=== PATIENT | female | born 1955 | race Caucasian/White ===

== ENCOUNTER → 2022-08-05 14:55 | Outpatient (BNVA) | payer MEDICARE, SELFPAY | PROVIDERS: PCP Family Medicine; Visit Provider Anesthesiology | DX: M51.36 Other intervertebral disc degeneration, lumbar region (principal); M47.816 Spondylosis without myelopathy or radiculopathy, lumbar region; G89.4 Chronic pain syndrome | CPT/HCPCS: 99202 ==

== ENCOUNTER 2022-09-03 06:08 | Outpatient (REF) | payer MEDICARE, SELFPAY ==
--- NOTE | ~2022-09-03 | FL_ITS ---
EXAMINATION: XR FLUOROSCOPY WITH IMAGES CLINICAL INFORMATION: M47.816 - Spondylosis without myelopathy or radiculopathy, lumbar region COMPARISON: None available. TECHNIQUE: Fluoroscopy Supervised By: Dr. Alirio Mccoy. Fluoroscopy Time: 0.6 minutes. Cumulative Dose: 9.0 mGy. DAP: 2.45 Gycm2. Images: 6. FINDINGS: There are spinal needles overlying the bilateral outer L3, L4, and L5 neural foramen. There is contrast seen in the respective nerve sheaths. Some early transforaminal epidural extension is suggested. No visible vascular communication. There are multilevel degenerative disc changes with lumbar disc narrowing and vertebral spurring. FL/FL guidance in treatment room IMPRESSION: Fluoroscopy for pain management procedures.
== END 2022-09-03 06:09 | disposition home or self-care (01) ==
LOC: CF 06:08
PROVIDERS: Visit Provider Anesthesiology
DX: M47.816 Spondylosis without myelopathy or radiculopathy, lumbar region (principal); G89.4 Chronic pain syndrome
CPT/HCPCS: 64493; 64494

== ENCOUNTER → 2022-09-09 11:41 | Outpatient (BNVA) | payer MEDICARE, SELFPAY | PROVIDERS: PCP Family Medicine; Visit Provider Anesthesiology | DX: M47.816 Spondylosis without myelopathy or radiculopathy, lumbar region (principal); M51.36 Other intervertebral disc degeneration, lumbar region; G89.4 Chronic pain syndrome | CPT/HCPCS: Q3014 ==

== ENCOUNTER 2022-09-17 13:47 | Outpatient (REF) | payer MEDICARE, SELFPAY ==
--- NOTE | ~2022-09-17 | XR_ITS ---
EXAMINATION: XR SACRUM AND COCCYX CLINICAL INFORMATION: Sacrococcygeal disorder. Pain. COMPARISON: None available. TECHNIQUE: 2 views of the sacrum and 2 views of the coccyx were obtained. FINDINGS: There is normal symmetry of bilateral SI joints without sclerosis. Visualized sacrum is intact. No fracture or lytic process. Bilateral hip joints are symmetric and normal. Lower lumbar disc levels are preserved normal. There is moderate spondylosis in the lower lumbar spine. Several phleboliths are seen in the left lower pelvis. XR/XR sacrum coccyx min 2V IMPRESSION: 1. Unremarkable sacrum and coccyx exam. 2. Moderate spondylosis in the lower lumbar spine. No visible acute fracture or dislocation seen. 3. Unremarkable SI joints. 4. Mild degenerative spondylosis lower lumbar spine.
== END 2022-09-17 13:48 | disposition home or self-care (01) ==
LOC: HO.XRAY 13:47
PROVIDERS: PCP Nurse Practitioner Adult Health; Visit Provider Anesthesiology
DX: M53.3 Sacrococcygeal disorders, not elsewhere classified (principal)
CPT/HCPCS: 72220

== ENCOUNTER 2022-10-15 05:50 | Outpatient (REF) | payer MEDICARE, SELFPAY ==
--- NOTE | ~2022-10-15 | FL_ITS ---
EXAMINATION: XR FLUOROSCOPY WITH IMAGES CLINICAL INFORMATION: Other intervertebral disc degeneration, lumbar region. COMPARISON: None available. TECHNIQUE: Fluoroscopy Supervised By: Dr. Mccoy. Fluoroscopy Time: 0.6 min. Cumulative Dose: 7.26 mGy. DAP: 0.126 Gycm2. Images: 2. FINDINGS: 2 images demonstrate needle placement and injection of the L5-S1 disc space. FL/FL guidance in treatment room IMPRESSION: Prostatic guidance for L5-S1 disc injection.
== END 2022-10-15 05:51 | disposition home or self-care (01) ==
LOC: CF 05:50
PROVIDERS: Visit Provider Anesthesiology
DX: M51.36 Other intervertebral disc degeneration, lumbar region (principal); M47.816 Spondylosis without myelopathy or radiculopathy, lumbar region; G89.4 Chronic pain syndrome
CPT/HCPCS: 62290; 99212; J0690; J3301; Q9965

== ENCOUNTER → 2022-10-21 15:17 | Outpatient (BNVA) | payer MEDICARE, SELFPAY | PROVIDERS: PCP Nurse Practitioner Adult Health; Visit Provider Anesthesiology | DX: M51.36 Other intervertebral disc degeneration, lumbar region (principal); M47.816 Spondylosis without myelopathy or radiculopathy, lumbar region; G89.4 Chronic pain syndrome | CPT/HCPCS: Q3014 ==

== ENCOUNTER 2022-11-05 07:08 | Outpatient (REF) | payer MEDICARE, SELFPAY ==
--- NOTE | ~2022-11-05 | FL_ITS ---
EXAMINATION: XR FLUOROSCOPY WITH IMAGES CLINICAL INFORMATION: Sacrococcygeal disorder, not elsewhere classified. COMPARISON: None available. TECHNIQUE: Fluoroscopy Supervised By: . Fluoroscopy Time: 0.1 minute. Cumulative Dose: 3.48 mGy. DAP: 0.948 Gycm2. Images: 1. FINDINGS: Single image demonstrates needle placement and contrast injection over the right sacroiliac joint FL/FL guidance in treatment room IMPRESSION: Fluoroscopy guidance for right sacroiliac joint injection
== END 2022-11-05 07:09 | disposition home or self-care (01) ==
LOC: CF 07:08
PROVIDERS: PCP Nurse Practitioner Adult Health; Visit Provider Anesthesiology
DX: M53.3 Sacrococcygeal disorders, not elsewhere classified (principal); M51.36 Other intervertebral disc degeneration, lumbar region; M47.816 Spondylosis without myelopathy or radiculopathy, lumbar region; M46.1 Sacroiliitis, not elsewhere classified
CPT/HCPCS: 27096; J2795

== ENCOUNTER → 2022-11-07 09:39 | Outpatient (BNVA) | payer MEDICARE, SELFPAY | PROVIDERS: PCP Nurse Practitioner Adult Health; Visit Provider Anesthesiology | DX: M51.36 Other intervertebral disc degeneration, lumbar region (principal); M47.816 Spondylosis without myelopathy or radiculopathy, lumbar region; M46.1 Sacroiliitis, not elsewhere classified; M53.3 Sacrococcygeal disorders, not elsewhere classified; G89.4 Chronic pain syndrome | CPT/HCPCS: 99212 ==

== ENCOUNTER 2022-12-24 05:59 | Outpatient (REF) | payer MEDICARE, SELFPAY ==
--- NOTE | ~2022-12-24 | FL_ITS ---
EXAMINATION: XR FLUOROSCOPY WITH IMAGES CLINICAL INFORMATION: Sacrococcygeal disorders, not elsewhere classified. Ganglion injection. COMPARISON: Fluoroscopy 11/05/2022. TECHNIQUE: Fluoroscopy Supervised By: Dr. Alirio Mccoy. Fluoroscopy Time: 0.2 minutes. Cumulative Dose: 5.77 mGy. DAP: 0.100 mGy-m2. Images: 2. FINDINGS: Images demonstrate needle placement and contrast injection adjacent to the lower sacrum or coccyx. FL/FL guidance in treatment room IMPRESSION: Fluoroscopy guidance for pain management procedure
--- NOTE | ~2022-12-24 | MR_ITS ---
NEURORADIOLOGY SECOND OPINION OUTSIDE FILM REVIEW: I was specifically asked to comment on the presence or absence of Modic changes on this outside MRI performed at [facility] on October 20, 2019. There are Modic type I and Modic type II endplate signal changes at L4-L5 and there are Modic type I endplate signal changes at L2-L3 on the left side anteriorly. I was not asked to review the remainder of this exam.
== END 2022-12-24 06:00 | disposition home or self-care (01) ==
LOC: CF 05:59
PROVIDERS: Visit Provider Anesthesiology
DX: M53.3 Sacrococcygeal disorders, not elsewhere classified (principal); M51.36 Other intervertebral disc degeneration, lumbar region; M47.816 Spondylosis without myelopathy or radiculopathy, lumbar region; M46.1 Sacroiliitis, not elsewhere classified; G89.4 Chronic pain syndrome
CPT/HCPCS: 64999; J3301

== ENCOUNTER 2022-12-24 09:28 | Outpatient (AMB) | payer MEDICARE, SELFPAY ==
[2022-12-24 09:33] VITALS: BP 130/66; PULSE 77; RESP 16; O2SAT 96; BMI 23.7
--- NOTE | 2022-12-24 09:33 | A.OFFVIS_ITS ---
Intake Vital Signs 12/24/22 09:33 12/24/22 10:30 Height 5 ft 4 in 5 ft 4 in Weight 138 lb 138 lb BMI 23.7 23.7 BP 130/66 134/78 Blood Pressure Location Lt brachial Lt brachial Position Sitting Sitting Respiration 16 16 Pulse 77 65 Pulse Source Pulse Oximeter Pulse Oximeter Pulse Oximetry (%) 96 98 Oxygen Delivery Method Room Air Room Air Comment Pre-op post-op Intake Visit Reasons: GANGLION IMPAR THERAPEUTIC INJ/STABLE Allergies Peppers, Jalapeno Adverse Reaction (Severe, Verified 12/24/22 09:33) Shortness of Breath [facility] Medical History (Updated 11/05/22 @ 15:20 by Alirio Mccoy MD) Arthritis, lumbar spine Epilepsy Heart murmur Surgical History (Updated 08/05/22 @ 15:18 by Zakia Manzano) H/O right mastectomy Physical Exam Vital Signs: Last Vital Signs Pulse 65 12/24/22 10:30 Resp 16 12/24/22 10:30 BP 134/78 12/24/22 10:30 Pulse Ox 98 12/24/22 10:30 Oxygen Delivery Method Room Air 12/24/22 10:30 BMI result Body Mass Index 23.7 Assessment & Plan Assessment & Plan (1) Disc degeneration, lumbar: Code(s): M51.36 - Other intervertebral disc degeneration, lumbar region (2) Facet degeneration of lumbar region: Code(s): M47.816 - Spondylosis without myelopathy or radiculopathy, lumbar region (3) Spondylosis of lumbar region without myelopathy or radiculopathy: Code(s): M47.816 - Spondylosis without myelopathy or radiculopathy, lumbar region (4) Chronic pain syndrome: Code(s): G89.4 - Chronic pain syndrome Plan: (5) Sacroiliitis, not elsewhere classified: Code(s): M46.1 - Sacroiliitis, not elsewhere classified (6) Coccydynia: Code(s): M53.3 - Sacrococcygeal disorders, not elsewhere classified Plan: ganglion impar injection. Informed consent was explained to the patient. All questions were explained and answered. The patient was taken inside the operating room. The patient was positioned prone on operating table . Time-out was performed delineating correct site, side, the nature of the procedure, patient's allergy, preoperative antibiotic if needed. All operating room staff was participating in OR time-out procedure. C-arm was brought over the operating field and picture of the patient's lower pelvis was demonstrated on the screen. coccygeal spine was delineated on the screen. intervertebral disc between coccyceal vertebrae 2 and 3 was chosen as the site of the needle insertion. The skin in the progection of the target was injected with local anesthetic lidocaine 2% 2 mls and after that 22 g 3&1/2 inch needle was inserted through the skin wheal and advanced to the disc on AP view in the strict midline fashion. After that the C-arm was switched to the lateral position and the needle was continued to slowly advance through the intervertebral disc on the lateral view 1-2 mm at a time. When the tip of the needle on the lateral view cleard 2 mm from the anterior surface of the coccygeal spine silhouette the injection of the contrast was performed demonstrating retropelvic spread of the contrast and no intravesicular, no intra rectal and no intravascular spread of the contrast. After that treatment medicine solusion was injected containing ropivacaine 0.5% 5 mls and kenalog 40 mg. After that the needle was removed and sterile dressing was applied.The patient tolerated procedure well. (7) Sacroiliac dysfunction: Code(s): M53.3 - Sacrococcygeal disorders, not elsewhere classified Plan diagnostic L5-S1 intradiscal injection was performed as above. On x-ray view there is a big up to 6 mm gap in between the both sides of the sacroiliac joint. The intradiscal injection resulted in equivocal pain relief from 3/10 to 2/10 during the 1st couple of hours after the procedure. The patient reported today that SI joint injection which was performed on 11/05/2022 resulted in no pain improvement either. She today explain to me that her pain could be coccydynia with most of the pain affecting her while she is sitting sq on her buttocks. I offered her to consider impar injection. The risks and benefits of ganglion impar injections were carefully explained to the patient. It required prolonged and very detailed conversation. All questions were answered. Patient agreed to go for the procedure. I will schedule her for the procedure and after that I will schedule her for the follow-up appointment. Orders: Orders FL guidance in treatment room Today G89.4 - Chronic pain syndrome, M53.3 - Sacrococcygeal disorders, not elsewhere classified Coding Level of Care Code Procedure Only Diagnoses Disc degeneration, lumbar M51.36 Facet degeneration of lumbar region M47.816 Spondylosis of lumbar region without myelopathy or radiculopathy M47.816 Chronic pain syndrome G89.4 Sacroiliitis, not elsewhere classified M46.1 Coccydynia M53.3 Sacroiliac dysfunction M53.3
[2022-12-24 10:30] VITALS: BP 134/78; PULSE 65; RESP 16; O2SAT 98; BMI 23.7
== END 2022-12-24 10:28 | disposition home or self-care (01) ==
PROVIDERS: PCP Nurse Practitioner Adult Health; Visit Provider Anesthesiology
DX: M51.36 Other intervertebral disc degeneration, lumbar region (principal); M47.816 Spondylosis without myelopathy or radiculopathy, lumbar region; G89.4 Chronic pain syndrome; M46.1 Sacroiliitis, not elsewhere classified; M53.3 Sacrococcygeal disorders, not elsewhere classified
CPT/HCPCS: 64999

== ENCOUNTER 2023-01-27 09:18 | Outpatient (AMB) | payer MEDICARE, SELFPAY ==
--- NOTE | 2023-01-27 09:31 | MHC.OFFVIS ---
Intake Vital Signs 01/27/23 09:35 Height 5 ft 4 in Weight 139 lb BMI 23.9 BP 142/88 H Blood Pressure Location Lt brachial Position Sitting Respiration 16 Pulse 85 Pulse Source Pulse Oximeter Pulse Oximetry (%) 96 Oxygen Delivery Method Room Air Intake Visit Reasons: GANGLION IMPAR THERAPEUTIC INJ 12/24/22 Allergies Peppers, Jalapeno Adverse Reaction (Severe, Verified 01/27/23 09:36) Shortness of Breath HPI HPI Comments History of Present Illness Details Marti is very pleasant 66 years old female who is suffering from her low back pain. Previously multiple attempts were made to diagnose and alleviate her pain. We performed intradiscal injection L5-S1 on her with the minimal pain reduction, we performed sacroiliac joint injection bilateral on which she reported no pain improvement. Last time she asked me whether her condition could be coccydynia. I performed ganglion impar injection?which resulted in no pain improvement. Vertebra genic pain could be considered with this patient since she reports pain exacerbation with flexing forward and prolong sitting. I requested her to bring me the MRI she received about 2 years ago and maybe earlier in [facility]. I will upload this MRI in our system and I will request radiologist to read the MRI. If there are Modic type changes in her lower lumbar spine L4-5 S1 I will consider her a candidate for intraseptal procedure. [facility] Medical History (Updated 01/27/23 @ 13:31 by Alirio Mccoy MD) Arthritis, lumbar spine Heart murmur Epilepsy Surgical History (Updated 08/05/22 @ 15:18 by Zakia Manzano) H/O right mastectomy Review of Systems Const All systems reviewed & are unremarkable except as noted in HPI and below ENT Reports Normal hearing present Neuro Reports Normal hearing present, Denies Abnormal speech present and Denies Sensory deficit (Neuro) Physical Exam Vital Signs: Last Vital Signs Pulse 85 01/27/23 09:35 Resp 16 01/27/23 09:35 BP 142/88 H 01/27/23 09:35 Pulse Ox 96 01/27/23 09:35 Oxygen Delivery Method Room Air 01/27/23 09:35 BMI result Body Mass Index 23.9 Const General: no acute distress Nutritional Appearance: average body habitus and well nourished Orientation/consciousness: patient oriented x3 Eyes General: appearance normal, both eyes and all related structures Pupils: Equal, round and reactive pupils present EOM: EOMs intact bilaterally Neck Neck: Yes full ROM Chest Chest palpation & inspection: normal inspection of the chest Resp Effort & Inspection: normal respiratory effort, able to speak in complete sentences, normal respiratory pattern, no audible wheezes and no cough Cardio Jugular venous distension: no JVD GI Inspection: Yes normal to inspection Back/Spine/Pelvis Other: She is able to stand on bilateral tiptoes and bilateral heels without difficulty. She is able to lift up large toes on bilateral feet without elevation of the rest of the toes. She is able to flex herself forward without difficulty but she is unable to flex herself backwards because of pain. Loading test is positive on the left. Tenderness of palpation in the center of the sacral bone. No tenderness of palpation in the projection of lumbar spine in paraspinal or spinal regions. Flexing spine sideways is painful more on the left and less on the right. Praful test is negative bilaterally. Gaenslen test is negative bilaterally. Izabel finger test is negative bilaterally. Tenderness on palpation in the projection of the coccygeal spine. Neuro General: patient oriented x3 and gait normal Cranial nerves: Yes CN's II-XII intact bilaterally, Yes Equal, round and reactive pupils present, Yes Normal hearing present and Yes Ability to bilaterally elevate shoulders present Speech: No Abnormal speech present Gait exam (Neuro): Normal gait present Motor exam (neuro): 5/5 motor strength present throughout Sensory Exam: No Sensory deficit (Neuro) Extrem General: No pedal edema Psych Speech and movement: Normal speech and movement present Affect: normal affect Attitude: cooperative Thought process: Normal thought process present Thought content: Normal thought content present Insight: Good insight present (Psych) Judgement: Good judgement present (Psych) Assessment & Plan Assessment & Plan (1) Disc degeneration, lumbar: Code(s): M51.36 - Other intervertebral disc degeneration, lumbar region (2) Facet degeneration of lumbar region: Code(s): M47.816 - Spondylosis without myelopathy or radiculopathy, lumbar region (3) Spondylosis of lumbar region without myelopathy or radiculopathy: Code(s): M47.816 - Spondylosis without myelopathy or radiculopathy, lumbar region (4) Chronic pain syndrome: Code(s): G89.4 - Chronic pain syndrome Plan: (5) Sacroiliitis, not elsewhere classified: Code(s): M46.1 - Sacroiliitis, not elsewhere classified (6) Coccydynia: Code(s): M53.3 - Sacrococcygeal disorders, not elsewhere classified (7) Sacroiliac dysfunction: Code(s): M53.3 - Sacrococcygeal disorders, not elsewhere classified (8) Vertebrogenic low back pain: Code(s): M54.51 - Vertebrogenic low back pain Plan Multiple attempts to alleviate the pain of the patient's were done without significant success. Intradiscal injection resulted in no pain improvement of though she might have aggravation in her pain related to intradiscal injection and it may be indicative for discogenic pain. Sacroiliac joint injections resulted in no pain improvement and ganglion impar injection resulted in no pain improvement. I requested her to bring me MRI of the lumbar spine she had at [facility] we will upload this MRI and will read the MRI for Modic type changes in the lower lumbar spine. Coding Level of Care Code Est Pt Level 4 (92253) Diagnoses Disc degeneration, lumbar M51.36 Facet degeneration of lumbar region M47.816 Spondylosis of lumbar region without myelopathy or radiculopathy M47.816 Chronic pain syndrome G89.4 Sacroiliitis, not elsewhere classified M46.1 Coccydynia M53.3 Sacroiliac dysfunction M53.3 Vertebrogenic low back pain M54.51
[2023-01-27 09:35] VITALS: BP 142/88; PULSE 85; RESP 16; O2SAT 96; BMI 23.9
== END 2023-01-27 10:15 | disposition home or self-care (01) ==
PROVIDERS: PCP Nurse Practitioner Adult Health; Visit Provider Anesthesiology
DX: M54.51 Vertebrogenic low back pain (principal); M51.36 Other intervertebral disc degeneration, lumbar region; M47.816 Spondylosis without myelopathy or radiculopathy, lumbar region; G89.4 Chronic pain syndrome; M46.1 Sacroiliitis, not elsewhere classified; M53.3 Sacrococcygeal disorders, not elsewhere classified
CPT/HCPCS: 99214

== ENCOUNTER → 2023-01-27 09:18 | Outpatient (BNVA) | payer MEDICARE, SELFPAY | PROVIDERS: PCP Nurse Practitioner Adult Health; Visit Provider Anesthesiology | DX: M51.36 Other intervertebral disc degeneration, lumbar region (principal); M47.816 Spondylosis without myelopathy or radiculopathy, lumbar region; M46.1 Sacroiliitis, not elsewhere classified; M53.3 Sacrococcygeal disorders, not elsewhere classified; M54.51 Vertebrogenic low back pain; G89.4 Chronic pain syndrome | CPT/HCPCS: 99212 ==

== ENCOUNTER 2023-02-03 15:54 | Outpatient (AMB) | payer MEDICARE, SELFPAY ==
--- NOTE | 2023-02-03 15:54 | MHC.OFFVIS ---
Intake Intake Visit Reasons: Intracept Procedure Discussion Allergies NighatVioleta jacob Adverse Reaction (Severe, Verified 02/03/23 15:54) Shortness of Breath HPI HPI Comments History of Present Illness Details Marti is very pleasant 66 years old female who is suffering from her low back pain. Previously multiple attempts were made to diagnose and alleviate her pain. We performed intradiscal injection L5-S1 on her with the minimal pain reduction, we performed sacroiliac joint injection bilateral on which she reported no pain improvement. Last time she asked me whether her condition could be coccydynia. I performed ganglion impar injection?which resulted in no pain improvement. Vertebrogenic pain could be considered with this patient since she reports pain exacerbation with flexing forward and prolong sitting. On the MRI of this patient NEURORADIOLOGY SECOND OPINION OUTSIDE FILM REVIEW: I was specifically asked to comment on the presence or absence of Modic changes on this outside MRI performed at [facility] on October 20, 2019. There are Modic type I and Modic type II endplate signal changes at L4-L5 and there are Modic type I endplate signal changes at L2-L3 on the left side anteriorly. I was not asked to review the remainder of this exam. The patient and I had very long and detailed conversation about the options of the treatment. I offered her intracept procedure. Explained to the patient that this is the last attempt to find her pain generator before was start to discuss neuromodulation for her. She agreed to try. I will schedule her for procedure accordingly. [facility] Medical History (Updated 01/27/23 @ 13:31 by Alirio Mccoy MD) Arthritis, lumbar spine Heart murmur Epilepsy Surgical History (Updated 08/05/22 @ 15:18 by Zakia Manzano) H/O right mastectomy Review of Systems Const All systems reviewed & are unremarkable except as noted in HPI and below Assessment & Plan Assessment & Plan (1) Disc degeneration, lumbar: Code(s): M51.36 - Other intervertebral disc degeneration, lumbar region (2) Facet degeneration of lumbar region: Code(s): M47.816 - Spondylosis without myelopathy or radiculopathy, lumbar region (3) Spondylosis of lumbar region without myelopathy or radiculopathy: Code(s): M47.816 - Spondylosis without myelopathy or radiculopathy, lumbar region (4) Chronic pain syndrome: Code(s): G89.4 - Chronic pain syndrome Plan: (5) Sacroiliitis, not elsewhere classified: Code(s): M46.1 - Sacroiliitis, not elsewhere classified (6) Coccydynia: Code(s): M53.3 - Sacrococcygeal disorders, not elsewhere classified (7) Sacroiliac dysfunction: Code(s): M53.3 - Sacrococcygeal disorders, not elsewhere classified (8) Vertebrogenic low back pain: Code(s): M54.51 - Vertebrogenic low back pain Plan Multiple attempts to alleviate the pain of the patient's were done without significant success. Intradiscal injection resulted in no pain improvement of though she might have aggravation in her pain related to intradiscal injection and it may be indicative for discogenic pain. Sacroiliac joint injections resulted in no pain improvement and ganglion impar injection resulted in no pain improvement. MRI 2nd opinion as above demonstrated Modic type 2 and Modic type 1 changes at the levels of the L2-L3 and L4-5. This patient will be scheduled as we agreed upon today for intracept procedure by arcelia. Patient Instructions: I here by testify that I spent 30 minutes in conversation with this patient as well as in planning her care and organizing her note. Telehealth Telehealth Location of provider rendering services: practice address Location of patient: address on file Patient Identification confirmed using: Name, : Yes Telehealth method: voice only Patient verbally consented to treatment: Yes Patient verbally consented to billing insurance company: Yes Patient informed of any privacy concerns related to visit: Yes Coding Level of Care Code Tele Est Pt Level 4 (89622) Diagnoses Disc degeneration, lumbar M51.36 Facet degeneration of lumbar region M47.816 Spondylosis of lumbar region without myelopathy or radiculopathy M47.816 Chronic pain syndrome G89.4 Sacroiliitis, not elsewhere classified M46.1 Coccydynia M53.3 Sacroiliac dysfunction M53.3 Vertebrogenic low back pain M54.51
== END 2023-02-03 16:10 | disposition home or self-care (01) ==
LOC: HO.PMC 15:54
PROVIDERS: PCP Nurse Practitioner Adult Health; Visit Provider Anesthesiology
DX: M51.36 Other intervertebral disc degeneration, lumbar region (principal); M47.816 Spondylosis without myelopathy or radiculopathy, lumbar region; G89.4 Chronic pain syndrome; M46.1 Sacroiliitis, not elsewhere classified; M53.3 Sacrococcygeal disorders, not elsewhere classified; M54.51 Vertebrogenic low back pain
CPT/HCPCS: 99443

== ENCOUNTER → 2023-02-03 15:54 | Outpatient (BNVA) | payer MEDICARE, SELFPAY | PROVIDERS: PCP Nurse Practitioner Adult Health; Visit Provider Anesthesiology ==

== ENCOUNTER 2023-02-20 08:46 | Outpatient (AMB) | payer MEDICARE, SELFPAY ==
--- NOTE | 2023-02-20 08:53 | A.OFFVIS_ITS ---
Intake Vital Signs 02/20/23 08:55 Height 5 ft 4 in Weight 141 lb BMI 24.2 BP 136/70 Blood Pressure Location Rt brachial Position Sitting Respiration 16 Pulse 93 Pulse Source Pulse Oximeter Pulse Oximetry (%) 96 Oxygen Delivery Method Room Air Intake Visit Reasons: 3 WEEK FOLLOW UP/ CONFIRMED Allergies Nighatnidia Ramonashalonda Adverse Reaction (Severe, Verified 02/20/23 08:56) Shortness of Breath HPI HPI Comments History of Present Illness Details Marti is in my office with questions related to her procedure scheduled on 03/07/2023. This would be intrasept procedure for her vertebra genic pain. She had numerous and multiple questions about the procedure. She had Modic type 1 and 2 changes at L4-5 and she has some changes Modic type 1 at L2-L3. Those levels would be a bad addressed by the procedure. Careful explanations were given. Prior:. Previously multiple attempts were made to diagnose and alleviate her pain. We performed intradiscal injection L5-S1 on her with the minimal pain reduction, we performed sacroiliac joint injection bilateral on which she reported no pain improvement. Last time she asked me whether her condition could be coccydynia. I performed ganglion impar injection?which resulted in no pain improvement. Vertebrogenic pain could be considered with this patient since she reports pain exacerbation with flexing forward and prolong sitting. On the MRI of this patient NEURORADIOLOGY SECOND OPINION OUTSIDE FILM REVIEW: I was specifically asked to comment on the presence or absence of Modic changes on this outside MRI performed at [facility] on October 20, 2019. There are Modic type I and Modic type II endplate signal changes at L4-L5 and there are Modic type I endplate signal changes at L2-L3 on the left side anteriorly. I was not asked to review the remainder of this exam. The patient and I had very long and detailed conversation about the options of the treatment. I offered her intracept procedure. Explained to the patient that this is the last attempt to find her pain generator before was start to discuss neuromodulation for her. She agreed to try. I will schedule her for procedure accordingly. [facility], [facility] Medical History (Updated 01/27/23 @ 13:31 by Alirio Mccoy MD) Arthritis, lumbar spine Heart murmur Epilepsy Surgical History (Updated 08/05/22 @ 15:18 by Zakia Manzano) H/O right mastectomy Review of Systems Const All systems reviewed & are unremarkable except as noted in HPI and below ENT Reports Normal hearing present Neuro Reports Normal hearing present, Denies Abnormal speech present and Denies Sensory deficit (Neuro) Physical Exam Vital Signs: Last Vital Signs Pulse 93 02/20/23 08:55 Resp 16 02/20/23 08:55 BP 136/70 02/20/23 08:55 Pulse Ox 96 02/20/23 08:55 Oxygen Delivery Method Room Air 02/20/23 08:55 BMI result Body Mass Index 24.2 Const General: no acute distress Nutritional Appearance: average body habitus and well nourished Orientation/consciousness: patient oriented x3 Eyes General: appearance normal, both eyes and all related structures Pupils: Equal, round and reactive pupils present EOM: EOMs intact bilaterally Neck Neck: Yes full ROM Chest Chest palpation & inspection: normal inspection of the chest Resp Effort & Inspection: normal respiratory effort, able to speak in complete sentences, normal respiratory pattern, no audible wheezes and no cough Cardio Jugular venous distension: no JVD GI Inspection: Yes normal to inspection Back/Spine/Pelvis Other: She is able to stand on bilateral tiptoes and bilateral heels without difficulty. She is able to lift up large toes on bilateral feet without elevation of the rest of the toes. She is able to flex herself forward without difficulty but she is unable to flex herself backwards because of pain. Loading test is positive on the left. Tenderness of palpation in the center of the sacral bone. No tenderness of palpation in the projection of lumbar spine in paraspinal or spinal regions. Flexing spine sideways is painful more on the left and less on the right. Praful test is negative bilaterally. Gaenslen test is negative bilaterally. Izabel finger test is negative bilaterally. Tenderness on palpation in the projection of the coccygeal spine. Neuro General: patient oriented x3 and gait normal Cranial nerves: Yes CN's II-XII intact bilaterally, Yes Equal, round and reactive pupils present, Yes Normal hearing present and Yes Ability to bilaterally elevate shoulders present Speech: No Abnormal speech present Gait exam (Neuro): Normal gait present Motor exam (neuro): 5/5 motor strength present throughout Sensory Exam: No Sensory deficit (Neuro) Extrem General: No pedal edema Psych Speech and movement: Normal speech and movement present Affect: normal affect Attitude: cooperative Thought process: Normal thought process present Thought content: Normal thought content present Insight: Good insight present (Psych) Judgement: Good judgement present (Psych) Results Reviewed Results Reviewed: MRI of the lumbar spine 10/20/2019. Low back pain degenerative disc disease history of breast cancer findings: On sagittal sequences from T11-T12 through L1-L2 no findings of concern is identified. Conus appropriately located at L1. L2-L3 low normal disc height. No disc abnormality. No central canal or foraminal stenosis. L3-L4 degenerative disc disease with disc height loss. Slight protrusion configuration right laterally but not significant mass effect. There is on minimal minimally progression compared to 2017. L4-5: Chronic degenerative disc disease with disc ridge complex and some disc bulging out to were the right-sided foramen. No progressive mass effect on exiting L4 nerve root. No progressive spinal stenosis. Mild facet degenerative changes may be minimally progressed. No joint infusion at the facet joints. Some minor active endplate marrow signal changes to were the right-sided endplates. L5-S1: Minor facet degenerative change. Some trace disc bulging to were the right. No mass effect or canal stenosis. No worrisome marrow signal changes. Study not tailored for evaluation of regional soft tissue but no adenopathy or other soft tissue findings of clear concern is identified. Impression: Largely chronic spondylitic changes with degenerative disc disease most pronounced at L4-5 with disc ridge complex but no spinal stenosis or progressive foraminal narrowing. Slight protrusion configuration at the right lateral aspect of L3 slightly progressive compared to 2017 but without significant harjit onal mass effect. Assessment & Plan Assessment & Plan (1) Disc degeneration, lumbar: Code(s): M51.36 - Other intervertebral disc degeneration, lumbar region (2) Facet degeneration of lumbar region: Code(s): M47.816 - Spondylosis without myelopathy or radiculopathy, lumbar region (3) Spondylosis of lumbar region without myelopathy or radiculopathy: Code(s): M47.816 - Spondylosis without myelopathy or radiculopathy, lumbar region (4) Chronic pain syndrome: Code(s): G89.4 - Chronic pain syndrome Plan: (5) Sacroiliitis, not elsewhere classified: Code(s): M46.1 - Sacroiliitis, not elsewhere classified (6) Coccydynia: Code(s): M53.3 - Sacrococcygeal disorders, not elsewhere classified (7) Sacroiliac dysfunction: Code(s): M53.3 - Sacrococcygeal disorders, not elsewhere classified (8) Vertebrogenic low back pain: Code(s): M54.51 - Vertebrogenic low back pain Plan Multiple attempts to alleviate the pain of the patient's were done without significant success. Intradiscal injection resulted in no pain improvement of though she might have aggravation in her pain related to intradiscal injection and it may be indicative for discogenic pain. Sacroiliac joint injections resulted in no pain improvement and ganglion impar injection resulted in no pain improvement. MRI 2nd opinion as above demonstrated Modic type 2 and Modic type 1 changes at the levels of the L2-L3 and L4-5. This patient is scheduledfor intracept procedure by arcelia. Very careful explanation of the risks benefits and alternatives of the procedure were discussed with the patient. The risks were explained to the patient. Patient Instructions: I here by testify that I spent 40 minutes in conversation with this patient. Coding Level of Care Code Est Pt Level 4 (95887) Diagnoses Disc degeneration, lumbar M51.36 Facet degeneration of lumbar region M47.816 Spondylosis of lumbar region without myelopathy or radiculopathy M47.816 Chronic pain syndrome G89.4 Sacroiliitis, not elsewhere classified M46.1 Coccydynia M53.3 Sacroiliac dysfunction M53.3 Vertebrogenic low back pain M54.51
[2023-02-20 08:55] VITALS: BP 136/70; PULSE 93; RESP 16; O2SAT 96; BMI 24.2
== END 2023-02-20 09:49 | disposition home or self-care (01) ==
PROVIDERS: PCP Nurse Practitioner Adult Health; Visit Provider Anesthesiology
DX: M51.36 Other intervertebral disc degeneration, lumbar region (principal); M47.816 Spondylosis without myelopathy or radiculopathy, lumbar region; G89.4 Chronic pain syndrome; M46.1 Sacroiliitis, not elsewhere classified; M53.3 Sacrococcygeal disorders, not elsewhere classified; M54.51 Vertebrogenic low back pain
CPT/HCPCS: 99214

== ENCOUNTER → 2023-02-20 08:46 | Outpatient (BNVA) | payer MEDICARE, SELFPAY | PROVIDERS: PCP Nurse Practitioner Adult Health; Visit Provider Anesthesiology | DX: M51.36 Other intervertebral disc degeneration, lumbar region (principal); M47.816 Spondylosis without myelopathy or radiculopathy, lumbar region; G89.4 Chronic pain syndrome; M46.1 Sacroiliitis, not elsewhere classified; M53.3 Sacrococcygeal disorders, not elsewhere classified; M54.51 Vertebrogenic low back pain | CPT/HCPCS: 99212 ==

== ENCOUNTER 2023-03-07 08:29 | Day surgery (SDC) | payer MEDICARE, SELFPAY ==
[2023-03-05 09:48] VITALS: BMI 24.2
[2023-03-05 10:41] VITALS: BMI 24.0
[2023-03-07] VITALS (11 sets, daily range): BP systolic 107–166; BP diastolic 63–89; PULSE 73–88; RESP 10–25; TEMP 36.1–36.2; O2SAT 95–99
--- NOTE | ~2023-03-07 | FL_ITS ---
EXAMINATION: XR FLUOROSCOPY WITH IMAGES CLINICAL INFORMATION: L3-L4-L5 Intracept RFA. COMPARISON: None available. TECHNIQUE: Fluoroscopy Supervised By: Dr. Alirio Mccoy. Fluoroscopy Time: 1.6 minutes. Cumulative Dose: 33.6 mGy. DAP: 4.689 Gycm2. Images: 5. FINDINGS: Images demonstrate transpedicular probes and instruments in the L4 and L5 vertebrae FL/FL guidance in OR IMPRESSION: Fluoroscopy guidance for pain management procedure
--- NOTE | 2023-03-07 12:29 | MHC.SHP ---
Pre-Procedural Eval Section A Date of Service: 03/07/23 The patient is an INPATIENT: No Changes since office visit: Yes Patient answered all questions The History & Physical has been completed within 30 days and I have reviewed it.: No Section B Chief Complaint: Vertebrogenic low back pain Details of Present Illness: as above Relevant Family History (Specify if Yes): No Relevant Social History: None Present Medications: see Short Stay Collaborative assessment Medical History: No relevant PMH History of Previous Operations: No relevant previous surgery Allergies: Allergies Allergy/AdvReac Type Severity Reaction Status Date / Time peppers AdvReac Severe Shortness Uncoded 03/05/23 10:35 of Breath Review of Systems Sugical H&P ROS: Negative: Constitution, Cardiovascular, Respiratory, Neurological, Psychiatric, Hem-Onc, Allergic/Immunologic, Gastrointestinal, Genitourinary, Musculoskeletal, Integumentary, Endocrine and Eyes/Ears/Nose/Throat Exam Surgical H&P Exam: Normal: HEENT, Normal: Heart, Normal: Lungs, Normal: Extremities, Normal: Abdomen, Normal: Skin and Normal: Neurological Plan Diagnosis/Plan: Unchanged I have reviewed the history and physical and performed a pertinent physical examination on my patient.I am going to perform Lumbar 4 and Lumbar 5 intracept procedure. Time Spent With Patient Time: Total time managing care of this patient today _5___ minutes.
--- NOTE | 2023-03-07 12:45 | P.CONAN_ITS ---
Documented by User: Amy Portillo NP 03/06/23 12:59 HPI - Anesthesia Eval Consult details Narrative: 67yo F for L4-L5 Basiervertebral Intracept RFA 2022 cardiac w/u for CP with EKG, Echo, Stress. All ok. Non-cardiac. PMFSH Active Problems Active Problems: All Active Problems (Updated 03/05/23 @ 10:44 by Vivian Marvin, RN) Vertebrogenic low back pain (Acute) Sacroiliitis, not elsewhere classified (Acute) Sacroiliac dysfunction (Acute) Coccydynia (Acute) Chronic pain syndrome (Acute) Spondylosis of lumbar region without myelopathy or radiculopathy (Acute) Facet degeneration of lumbar region (Acute) Disc degeneration, lumbar (Acute) Past Medical History Medical History (Updated 03/05/23 @ 10:44 by Vivian Marvin, SUKHI) Seasonal allergies History of chemotherapy Hx of breast cancer Elevated cholesterol HTN (hypertension) Arthritis, lumbar spine Heart murmur Epilepsy Surgical History Surgical History (Updated 08/05/22 @ 15:18 by Zakia Manzano) H/O right mastectomy Social History Social History Are you a primary property caretaker to a significant other at home: No Do you presently have visiting nurse or other home services: No Patient Tobacco Use Status: Former Tobacco user Quit Date: 1994 Tobacco use type: Cigarette Use of substances other than those prescribed or required for medical reasons: No Have you been hit, kicked, punched, or otherwise hurt by someone within the past year? If so, by whom?: No Are you DNR?: No Advance Directives: No Advance Directives Information Provided: Yes Advance Directives on File: No Recently lost weight without trying: No Meds Allergies Allergy/AdvReac Type Severity Reaction Status Date / Time peppers AdvReac Severe Shortness Uncoded 03/05/23 10:35 of Breath Home Medications Medication Instructions Recorded Confirmed Last Taken Type phenytoin sodium extended 100 mg 100 mg PO TID 08/05/22 03/05/23 Unknown History capsule rosuvastatin 10 mg tablet (Crestor) 10 mg PO DAILY 08/05/22 03/05/23 Unknown History calcium carbonate 600 mg-vitamin 1 tab PO DAILY 03/05/23 03/05/23 Unknown History D3 5 mcg (200 unit) tablet fluticasone propionate 50 1 spray intranasal DAILY 03/05/23 03/05/23 Unknown History mcg/actuation nasal spray,suspension (Flonase Allergy Relief) loratadine 10 mg tablet 10 mg PO DAILY 03/05/23 03/05/23 Unknown History multivitamin 1 tab PO DAILY 03/05/23 03/05/23 Unknown History Exam Exam Date and Time: March 06, 2023 1150 Height,Weight and Vital Signs: Height 5 ft 4 in Weight 63.503 kg Assessment and Plan Assessment Anesthesia Assessment: Chart Reviewed Documented by User: Meghan Ma DO 03/07/23 12:47 PMFSH Past Medical History Medical History (Updated 03/05/23 @ 10:44 by Vivian Marvin RN) Seasonal allergies History of chemotherapy Hx of breast cancer Elevated cholesterol HTN (hypertension) Arthritis, lumbar spine Heart murmur Epilepsy Surgical History Surgical History (Updated 08/05/22 @ 15:18 by Zakia Manzano) H/O right mastectomy History of Problems with Anesthesia: No Social History Social History Are you a primary property caretaker to a significant other at home: No Do you presently have visiting nurse or other home services: No Patient Tobacco Use Status: Former Tobacco user Quit Date: 1994 Tobacco use type: Cigarette Use of substances other than those prescribed or required for medical reasons: No Have you been hit, kicked, punched, or otherwise hurt by someone within the past year? If so, by whom?: No Are you DNR?: No Advance Directives: No Advance Directives Information Provided: Yes Advance Directives on File: No Recently lost weight without trying: No Meds Allergies Allergy/AdvReac Type Severity Reaction Status Date / Time peppers AdvReac Severe Shortness Uncoded 03/05/23 10:35 of Breath Home Medications Medication Instructions Recorded Confirmed Last Taken Type phenytoin sodium extended 100 mg 100 mg PO TID 08/05/22 03/05/23 Unknown History capsule rosuvastatin 10 mg tablet (Crestor) 10 mg PO DAILY 08/05/22 03/05/23 Unknown History calcium carbonate 600 mg-vitamin 1 tab PO DAILY 03/05/23 03/05/23 Unknown History D3 5 mcg (200 unit) tablet fluticasone propionate 50 1 spray intranasal DAILY 03/05/23 03/05/23 Unknown History mcg/actuation nasal spray,suspension (Flonase Allergy Relief) loratadine 10 mg tablet 10 mg PO DAILY 03/05/23 03/05/23 Unknown History multivitamin 1 tab PO DAILY 03/05/23 03/05/23 Unknown History Exam Exam Date and Time: March 07, 2023 1245 Height,Weight and Vital Signs: Height 5 ft 4 in Weight 63.503 kg Vital Signs Temperature 97.0 F 03/07/23 10:44 Pulse Rate 73 03/07/23 10:44 Respiratory Rate 16 03/07/23 10:44 Blood Pressure 163/69 H 03/07/23 10:44 Pulse Oximetry 99 03/07/23 10:44 Oxygen Delivery Method Room Air 03/07/23 10:44 Temperature 97.0 F 03/07/23 10:44 Pulse Rate 73 03/07/23 10:44 Respiratory Rate 16 03/07/23 10:44 Blood Pressure 163/69 H 03/07/23 10:44 Pulse Oximetry 99 03/07/23 10:44 Oxygen Delivery Method Room Air 03/07/23 10:44 Airway Mallampati Class: II TM Dist: >3cm Neck ROM: Full Loose/Missing/Broken Teeth: No (patient denies) Heart: S1S2 Lungs: CTAB Assessment and Plan Assessment Anesthesia Assessment: Anesthesia Plan Discussed and Chart Reviewed Final Anesthetic Review History of Problems with Anesthesia: No NPO: Yes ASA Class: II Final Preanesthetic Review: No Changes in Pt Med Stat, Meds/Allgs Chart Reviewed, Consent Obtained/Reviewed and Anes Risks/Benef Reviewed Patient Risk: Low Procedure Risk: Low Anesthetic Plan Anesthetic Plan: GA and Agree w/ Assess. and Plan Disposition: Standard PACU
--- NOTE | 2023-03-07 14:59 | P.BOP_ITS ---
Brief Operative Note Date of Service: 03/07/23 Pre-op diagnosis: vertebrogenic back pain Post-op diagnosis: same Procedure: L4 and L5 basiveretebral nerve RFA/ Intracept Surgeon: Alirio Mccoy MD Anesthesia: GLMA Was an [employer] used for this Procedure?: No Estimated blood loss (mL): 10 Condition: stable Disposition: PACU
--- NOTE | 2023-03-07 15:08 | P.OP_ITS ---
Operative Note Operative Note Date of Service: 03/07/23 Narrative: Intracept L4- L5. RFA of the L3 and L4 basivertebral nerves Intracept. Procedure: Basivertebral nerve (BVN) ablation? Intracept ProcedureL4 and L5 Indications for Procedure:?Marti?is very pleasant 67 years old female who is suffering from axial low back pain exacerbated by forward flexing, prolong sitting, prolonged standing, walking.? She was sent to MRI and was discovered with Modic type 2 endplate changes at above delineated ?vertebras.? Prior to that the patient received multiple injections to treat axial back pain including medial branch blocks and sacroiliac joint injections bilateral however those injections were not effective for control of her pain.? He was sent to MRI and ?attention was attracted to Modic type changes and he was offered Intracept procedure, she came today to the operating room to receive the procedure.? Informed consent was obtained delineating risk of bleeding, infection peripheral nerve damage , damage to spinal canal with CSF leak , post dural puncture headache.? The patient came to the operating room ?and position prone on the operating table.? [employer] monitors were applied, general anesthesia was induced and LMA was inserted without complications. Procedure Time Out: Patient ID confirmed, correct procedure to be performed, correct site and/or side for procedure , need for antibiotic administration, need for DVT prophylaxis, risk of fire.? The patient received cefazolin 2 g intravenously 30 minutes before onset of the procedure as well as dexamethasone 4 mg intravenously push. ?The entire back was sterilely prepped with ChloraPrep twice and draped with sterile self adhesive utility towels and covered with full body drape.? Two sterilely draped C-arms were positioned in fixed anterior posterior and lateral positions alongside the patient's body.?? C-arm was moved to visualize the target at the superolateral aspect of the L5 vertebral body using the approach similar to the S1 vertebral body this time on the left side. The C-arm was rotated to square off the superior endplate at L5 and rotated right to obtain an oblique view. The superolateral ?right L 5 pedicle was identified, and the skin entry point identified and infiltrated with 1% lidocaine using a 25- gauge 1-1/2 inch needle. A 22-gauge 5-inch spinal needle was used to anesthetize the track to the pedicle and periosteum and confirm the introducer cannula trajectory. A skin incision was made with 10 scalpel blade 5 mm. The introducer cannula with bevel tip was then introduced through the skin, subcutaneous tissue and paraspinal muscle until bony contact was made. The position was checked in the AP and Lateral plane. Using a mallet, the trocar was then advanced through the pedicle to the posterior aspect of the vertebral body using a combination of AP and lateral views to ensure appropriate traversing of the pedicle and no breaching of the pedicle medially or inferiorly. Once the trocar was in the posterior aspect of the L5 vertebral body, the trocar was removed from the cannula and the curved cannula assembly with the nitinol J-stylet was inserted. The spin wheel was rotated counterclockwise permitting excursion of the J-stylet. The curved cannula assembly was then advanced using a mallet in 1-2 mm increments. The J-stylet was observed to traverse the vertebral body in the AP and lateral views. Target was reached when the tip of the stylet was 45 % anterior of the posterior wall of the L4 in the lateral view (midway between the superior and inferior endplates) and it crossed the midline of the L4 spinous process in the AP view. The stylet was then removed. The bipolar radiofrequency (RF) probe was removed from the previous vertebral body, the tip cleaned and was inserted into the introducer cannula in its ablation position. The spin wheel was rotated clockwise to retract the PEEK sleeve to expose the proximal electrode on the radiofrequency probe. The BVN was then ablated using [employer]?s standard RFG algorithm. While the ablation was occurring at below level , the C-arm was moved to visualize the target at the superolateral aspect of the L4 vertebral body using the approach similar to the L5 vertebral body this time on the left side. The C- arm was rotated to square off the superior endplate at L4 and rotated left to obtain an oblique view. The superolateral ?left L4 pedicle was identified, and the skin entry point identified and infiltrated with 1% lidocaine using a 25- gauge 1-1/2 inch needle. A 22-gauge 5-inch spinal needle was used to anesthetize the track to the pedicle and periosteum and confirm the introducer cannula trajectory. A skin incision was made with 10 scalpel blade 5 mm. The introducer cannula with bevel tip was then introduced through the skin, subcutaneous tissue and paraspinal muscle until bony contact was made. The position was checked in the AP and Lateral plane. Using a mallet, the trocar was then advanced through the pedicle to the posterior aspect of the vertebral body using a combination of AP and lateral views to ensure appropriate traversing of the pedicle and no breaching of the pedicle medially or inferiorly. Once the trocar was in the posterior aspect of the L4 vertebral body, the trocar was removed from the cannula and the curved cannula assembly with the nitinol J-stylet was inserted. The spin wheel was rotated counterclockwise permitting excursion of the J- stylet. The curved cannula assembly was then advanced using a mallet in 1-2 mm increments. The J-stylet was observed to traverse the vertebral body in the AP and lateral views. Target was reached when the tip of the stylet was 45 % anterior of the posterior wall of the L3 in the lateral view (midway between the superior and inferior endplates) and it crossed the midline of the L3 spinous process in the AP view. The stylet was then removed. The bipolar radiofrequency (RF) probe was removed from the previous vertebral body, the tip cleaned and was inserted into the introducer cannula in its ablation position. The spin wheel was rotated clockwise to retract the PEEK sleeve to expose the proximal electrode on the radiofrequency probe. The BVN was then ablated using [employer]?s standard RFG algorithm. Upon completion of the energy application the instruments were removed, pressure was applied for 90 seconds for hemostasis and a suture 0-0 silk were applied to the both incisions. Sterile dressing with bacitracin and tegaderm were applied. The patient was awaken extubated, taken outside of the operating room to recovery room where he recovered uneventfully.
[2023-03-07] MEDS: Acetaminophen 325 MG TABLET 650 MG PO (15:09)
[2023-03-07] MEDS: oxyCODONE HCl Immed Release 5 MG TABLET 10 MG PO (15:11)
[2023-03-07] MEDS: fentaNYL citrate/PF 100 MCG/2 ML VIAL 50 MCG IVPUSH ×2 (15:13→15:48)
== END 2023-03-07 16:56 | disposition home or self-care (01) ==
PROVIDERS: PCP Nurse Practitioner Adult Health; Visit Provider Anesthesiology
PROC: (CPT 64628; principal; 2023-03-07 10:20)
DX: M54.51 Vertebrogenic low back pain (principal); G89.4 Chronic pain syndrome; M51.36 Other intervertebral disc degeneration, lumbar region; M47.816 Spondylosis without myelopathy or radiculopathy, lumbar region; M46.1 Sacroiliitis, not elsewhere classified; M53.3 Sacrococcygeal disorders, not elsewhere classified; R01.1 Cardiac murmur, unspecified; G40.909 Epilepsy, unspecified, not intractable, without status epilepticus; I10 Essential (primary) hypertension; Z79.899 Other long term (current) drug therapy; Z87.891 Personal history of nicotine dependence
CPT/HCPCS: 64628; C1889; J0690; J1100; J2405; J2795; J3010

== ENCOUNTER → 2023-03-07 08:29 | Outpatient (BNV) | payer MEDICARE, SELFPAY | PROVIDERS: PCP Nurse Practitioner Adult Health; Visit Provider Anesthesiology | DX: M54.51 Vertebrogenic low back pain (principal) | CPT/HCPCS: 64628 ==

== ENCOUNTER 2023-03-17 08:57 | Outpatient (AMB) | payer MEDICARE, SELFPAY ==
--- NOTE | 2023-03-17 09:18 | A.OFFVIS_ITS ---
Intake Vital Signs 03/17/23 09:29 Height 5 ft 4 in Weight 140 lb BMI 24.0 BP 136/65 Blood Pressure Location Lt brachial Position Sitting Respiration 16 Pulse 84 Pulse Source Pulse Oximeter Pulse Oximetry (%) 95 Oxygen Delivery Method Room Air Intake Visit Reasons: S/p Intracept L4-L5 03/07/23/confirmed Intake Note: patient comes in for s/p Intracept L4-L5 on 03/07/23. Allergies peppers Adverse Reaction (Severe, Uncoded 03/05/23 10:35) Shortness of Breath HPI HPI Comments History of Present Illness Details Marti is back in my office after intraseptal procedure L4-5. She still does not report significant pain improvement after the procedure. But it might be still too early to assess. We would need to wait 3 4 weeks for full results of the procedure. She will schedule appointment after that with me. Prior:. Previously multiple attempts were made to diagnose and alleviate her pain. We performed intradiscal injection L5-S1 on her with the minimal pain reduction, we performed sacroiliac joint injection bilateral on which she reported no pain improvement. Last time she asked me whether her condition could be coccydynia. I performed ganglion impar injection?which resulted in no pain improvement. Vertebrogenic pain could be considered with this patient since she reports pain exacerbation with flexing forward and prolong sitting. On the MRI of this patient NEURORADIOLOGY SECOND OPINION OUTSIDE FILM REVIEW: I was specifically asked to comment on the presence or absence of Modic changes on this outside MRI performed at [facility] on October 20, 2019. There are Modic type I and Modic type II endplate signal changes at L4-L5 and there are Modic type I endplate signal changes at L2-L3 on the left side anteriorly. I was not asked to review the remainder of this exam. The patient and I had very long and detailed conversation about the options of the treatment. I offered her intracept procedure. Explained to the patient that this is the last attempt to find her pain generator before was start to discuss neuromodulation for her. She agreed to try. I will schedule her for procedure accordingly. [facility] Medical History (Updated 03/05/23 @ 10:44 by Vivian Marvin RN) Seasonal allergies History of chemotherapy Hx of breast cancer Elevated cholesterol HTN (hypertension) Arthritis, lumbar spine Heart murmur Epilepsy Surgical History (Updated 08/05/22 @ 15:18 by Zakia Manzano) H/O right mastectomy Social History Are you a primary managed care analyst to a significant other at home: No Do you presently have visiting nurse or other home services: No Patient Tobacco Use Status: Former Tobacco user Quit Date: 1994 Tobacco use type: Cigarette Review of Systems Const All systems reviewed & are unremarkable except as noted in HPI and below ENT Reports Normal hearing present Neuro Reports Normal hearing present, Denies Abnormal speech present and Denies Sensory deficit (Neuro) Physical Exam Vital Signs: Last Vital Signs Pulse 84 03/17/23 09:29 Resp 16 03/17/23 09:29 BP 136/65 03/17/23 09:29 Pulse Ox 95 03/17/23 09:29 Oxygen Delivery Method Room Air 03/17/23 09:29 BMI result Body Mass Index 24.0 Const General: no acute distress Nutritional Appearance: average body habitus and well nourished Orientation/consciousness: patient oriented x3 Eyes General: appearance normal, both eyes and all related structures Pupils: Equal, round and reactive pupils present EOM: EOMs intact bilaterally Neck Neck: Yes full ROM Chest Chest palpation & inspection: normal inspection of the chest Resp Effort & Inspection: normal respiratory effort, able to speak in complete sentences, normal respiratory pattern, no audible wheezes and no cough Cardio Jugular venous distension: no JVD GI Inspection: Yes normal to inspection Back/Spine/Pelvis Other: She is able to stand on bilateral tiptoes and bilateral heels without difficulty. She is able to lift up large toes on bilateral feet without elevation of the rest of the toes. She is able to flex herself forward without difficulty but she is unable to flex herself backwards because of pain. Loading test is positive on the left. Tenderness of palpation in the center of the sacral bone. No tenderness of palpation in the projection of lumbar spine in paraspinal or spinal regions. Flexing spine sideways is painful more on the left and less on the right. Neuro General: patient oriented x3 and gait normal Cranial nerves: Yes CN's II-XII intact bilaterally, Yes Equal, round and reactive pupils present, Yes Normal hearing present and Yes Ability to bilaterally elevate shoulders present Speech: No Abnormal speech present Gait exam (Neuro): Normal gait present Motor exam (neuro): 5/5 motor strength present throughout Sensory Exam: No Sensory deficit (Neuro) Extrem General: No pedal edema Psych Speech and movement: Normal speech and movement present Affect: normal affect Attitude: cooperative Thought process: Normal thought process present Thought content: Normal thought content present Insight: Good insight present (Psych) Judgement: Good judgement present (Psych) Assessment & Plan Assessment & Plan (1) Disc degeneration, lumbar: Code(s): M51.36 - Other intervertebral disc degeneration, lumbar region (2) Facet degeneration of lumbar region: Code(s): M47.816 - Spondylosis without myelopathy or radiculopathy, lumbar region (3) Spondylosis of lumbar region without myelopathy or radiculopathy: Code(s): M47.816 - Spondylosis without myelopathy or radiculopathy, lumbar region (4) Chronic pain syndrome: Code(s): G89.4 - Chronic pain syndrome Plan: (5) Sacroiliitis, not elsewhere classified: Code(s): M46.1 - Sacroiliitis, not elsewhere classified (6) Coccydynia: Code(s): M53.3 - Sacrococcygeal disorders, not elsewhere classified (7) Sacroiliac dysfunction: Code(s): M53.3 - Sacrococcygeal disorders, not elsewhere classified (8) Vertebrogenic low back pain: Code(s): M54.51 - Vertebrogenic low back pain Plan Multiple attempts to alleviate the pain of the patient's were done without significant success. Intradiscal injection resulted in no pain improvement of though she might have aggravation in her pain related to intradiscal injection and it may be indicative for discogenic pain. The sutures were removed today. At this sterile dressings were applied. I am willing to wait 3-4 weeks longer to assess full effect of the intercept procedure. I will see her after this period of time Coding Level of Care Code Est Pt Level 3 (70359) Diagnoses Disc degeneration, lumbar M51.36 Facet degeneration of lumbar region M47.816 Spondylosis of lumbar region without myelopathy or radiculopathy M47.816 Chronic pain syndrome G89.4 Sacroiliitis, not elsewhere classified M46.1 Coccydynia M53.3 Sacroiliac dysfunction M53.3 Vertebrogenic low back pain M54.51
[2023-03-17 09:29] VITALS: BP 136/65; PULSE 84; RESP 16; O2SAT 95; BMI 24.0
== END 2023-03-17 09:54 | disposition home or self-care (01) ==
PROVIDERS: PCP Nurse Practitioner Adult Health; Visit Provider Anesthesiology
DX: M51.36 Other intervertebral disc degeneration, lumbar region (principal); M47.816 Spondylosis without myelopathy or radiculopathy, lumbar region; G89.4 Chronic pain syndrome; M46.1 Sacroiliitis, not elsewhere classified; M53.3 Sacrococcygeal disorders, not elsewhere classified; M54.51 Vertebrogenic low back pain
CPT/HCPCS: 99024

== ENCOUNTER → 2023-03-17 08:57 | Outpatient (BNVA) | payer MEDICARE, SELFPAY | PROVIDERS: PCP Nurse Practitioner Adult Health; Visit Provider Anesthesiology | DX: M51.36 Other intervertebral disc degeneration, lumbar region (principal); M47.816 Spondylosis without myelopathy or radiculopathy, lumbar region; G89.4 Chronic pain syndrome; M46.1 Sacroiliitis, not elsewhere classified; M53.3 Sacrococcygeal disorders, not elsewhere classified; M54.51 Vertebrogenic low back pain | CPT/HCPCS: 99212 ==

== ENCOUNTER 2023-04-14 09:13 | Outpatient (AMB) | payer MEDICARE, SELFPAY ==
--- NOTE | 2023-04-14 09:15 | A.OFFVIS_ITS ---
Intake Vital Signs 04/14/23 09:23 Height 5 ft 4 in Weight 142 lb BMI 24.4 BP 140/72 H Blood Pressure Location Lt brachial Position Sitting Respiration 18 Pulse 88 Pulse Source Pulse Oximeter Pulse Oximetry (%) 97 Oxygen Delivery Method Room Air Intake Visit Reasons: 4 WEEK FOLLOW UP/confirmed Allergies peppers Adverse Reaction (Severe, Uncoded 03/05/23 10:35) Shortness of Breath HPI HPI Comments History of Present Illness Details Marti is back in my office after intraseptal procedure L4-5 performed 1 month ago. She denies any pain in the back in the projection of the lumbar spine. However now on the background of the pain improvement in the lower back she feels more pain in the projection of the bilateral ischial bones. She reports that the prolong sitting causes significant pain aggravation and she feels pain in the projection of bilateral initial bones which radiate into the sacral bone. She reports that heat alleviates pain in the area of the ischial bone and sacral bone. She requests me to perform some injections to alleviate this pain. We discussed the issue to treat her pain with neuromodulation now. I offered her spinal cord stimulation versus peripheral nerve stimulation to treat her pain. In the order to go for this procedure she needs to have psychological evaluation done 1st. In the order to temporize this pain she requested me to perform epidural steroid injection. I agreed to perform caudal epidural steroid injection without catheter for her. Prior:. Previously multiple attempts were made to diagnose and alleviate her pain. We performed intradiscal injection L5-S1 on her with the minimal pain reduction, we performed sacroiliac joint injection bilateral on which she reported no pain improvement. Last time she asked me whether her condition could be coccydynia. I performed ganglion impar injection?which resulted in no pain improvement. Vertebrogenic pain could be considered with this patient since she reports pain exacerbation with flexing forward and prolong sitting. On the MRI of this patient NEURORADIOLOGY SECOND OPINION OUTSIDE FILM REVIEW: I was specifically asked to comment on the presence or absence of Modic changes on this outside MRI performed at [facility] on October 20, 2019. There are Modic type I and Modic type II endplate signal changes at L4-L5 and there are Modic type I endplate signal changes at L2-L3 on the left side anteriorly. I was not asked to review the remainder of this exam. [facility] Medical History (Updated 04/14/23 @ 09:59 by Alirio Mccoy MD) Seasonal allergies History of chemotherapy Hx of breast cancer Elevated cholesterol HTN (hypertension) Arthritis, lumbar spine Heart murmur Epilepsy Surgical History (Updated 08/05/22 @ 15:18 by Zakia Manzano) H/O right mastectomy Social History Are you a primary health care marketing manager to a significant other at home: No Do you presently have visiting nurse or other home services: No Comment: aware of trip hazard Patient Tobacco Use Status: Former Tobacco user Quit Date: 1994 Tobacco use type: Cigarette Review of Systems Const All systems reviewed & are unremarkable except as noted in HPI and below ENT Reports Normal hearing present Neuro Reports Normal hearing present, Denies Abnormal speech present and Denies Sensory deficit (Neuro) Physical Exam Vital Signs: Last Vital Signs Pulse 88 04/14/23 09:23 Resp 18 04/14/23 09:23 BP 140/72 H 04/14/23 09:23 Pulse Ox 97 04/14/23 09:23 Oxygen Delivery Method Room Air 04/14/23 09:23 BMI result Body Mass Index 24.4 Const General: no acute distress Nutritional Appearance: average body habitus and well nourished Orientation/consciousness: patient oriented x3 Eyes General: appearance normal, both eyes and all related structures Pupils: Equal, round and reactive pupils present EOM: EOMs intact bilaterally Neck Neck: Yes full ROM Chest Chest palpation & inspection: normal inspection of the chest Resp Effort & Inspection: normal respiratory effort, able to speak in complete sentences, normal respiratory pattern, no audible wheezes and no cough Cardio Jugular venous distension: no JVD GI Inspection: Yes normal to inspection Back/Spine/Pelvis Other: She is able to stand on bilateral tiptoes and bilateral heels without difficulty. She is able to lift up large toes on bilateral feet without elevation of the rest of the toes. She is able to flex herself forward without difficulty but she is unable to flex herself backwards because of pain. Loading test is positive on the left. Tenderness of palpation in the center of the sacral bone. No tenderness of palpation in the projection of lumbar spine in p araspinal or spinal regions. Flexing spine sideways is painful more on the left and less on the right. Significant tenderness on palpation in the projection of bilateral ischial bones as well as tenderness on palpation in the projection of the sacral bone. Neuro General: patient oriented x3 and gait normal Cranial nerves: Yes CN's II-XII intact bilaterally, Yes Equal, round and reactive pupils present, Yes Normal hearing present and Yes Ability to bilaterally elevate shoulders present Speech: No Abnormal speech present Gait exam (Neuro): Normal gait present Motor exam (neuro): 5/5 motor strength present throughout Sensory Exam: No Sensory deficit (Neuro) Extrem General: No pedal edema Psych Speech and movement: Normal speech and movement present Affect: normal affect Attitude: cooperative Thought process: Normal thought process present Thought content: Normal thought content present Insight: Good insight present (Psych) Judgement: Good judgement present (Psych) Assessment & Plan Assessment & Plan (1) Disc degeneration, lumbar: Code(s): M51.36 - Other intervertebral disc degeneration, lumbar region (2) Facet degeneration of lumbar region: Code(s): M47.816 - Spondylosis without myelopathy or radiculopathy, lumbar region (3) Spondylosis of lumbar region without myelopathy or radiculopathy: Code(s): M47.816 - Spondylosis without myelopathy or radiculopathy, lumbar region (4) Chronic pain syndrome: Code(s): G89.4 - Chronic pain syndrome Plan: (5) Sacroiliitis, not elsewhere classified: Code(s): M46.1 - Sacroiliitis, not elsewhere classified (6) Coccydynia: Code(s): M53.3 - Sacrococcygeal disorders, not elsewhere classified (7) Sacroiliac dysfunction: Code(s): M53.3 - Sacrococcygeal disorders, not elsewhere classified (8) Low back pain: Code(s): M54.50 - Low back pain, unspecified (9) Degeneration of lumbosacral intervertebral disc: Code(s): M51.37 - Other intervertebral disc degeneration, lumbosacral region Plan Multiple attempts to alleviate the pain of the patient's were done without si gnificant success. Intradiscal injection resulted in no pain improvement of though she might have aggravation in her pain related to intradiscal injection and it may be indicative for discogenic pain. Intercept procedure alleviated pain in the projection of the lumbar spine however she still complains on pain in the projection of initial bones a and pain in the sacral bone. She asks me to temporize her pain with some injection while we are waiting for her to be approved for neuromodulation and go for psychological evaluation for this purpose. I offered her caudal epidural steroid injection. Without catheter. I will schedule for this procedure as soon as possible. She will be scheduled for psychological evaluation. Coding Level of Care Code Est Pt Level 3 (47340) Diagnoses Disc degeneration, lumbar M51.36 Facet degeneration of lumbar region M47.816 Spondylosis of lumbar region without myelopathy or radiculopathy M47.816 Chronic pain syndrome G89.4 Sacroiliitis, not elsewhere classified M46.1 Coccydynia M53.3 Sacroiliac dysfunction M53.3 Low back pain M54.50 Degeneration of lumbosacral intervertebral disc M51.37
[2023-04-14 09:23] VITALS: BP 140/72; PULSE 88; RESP 18; O2SAT 97; BMI 24.4
== END 2023-04-14 09:52 | disposition home or self-care (01) ==
PROVIDERS: PCP Nurse Practitioner Adult Health; Visit Provider Anesthesiology
DX: M51.36 Other intervertebral disc degeneration, lumbar region (principal); M47.816 Spondylosis without myelopathy or radiculopathy, lumbar region; G89.4 Chronic pain syndrome; M46.1 Sacroiliitis, not elsewhere classified; M53.3 Sacrococcygeal disorders, not elsewhere classified; M54.50 Low back pain, unspecified; M51.37 Other intervertebral disc degeneration, lumbosacral region
CPT/HCPCS: 99213

== ENCOUNTER → 2023-04-14 09:13 | Outpatient (BNVA) | payer MEDICARE, SELFPAY | PROVIDERS: PCP Nurse Practitioner Adult Health; Visit Provider Anesthesiology | DX: M54.51 Vertebrogenic low back pain (principal); M51.36 Other intervertebral disc degeneration, lumbar region; M51.37 Other intervertebral disc degeneration, lumbosacral region; M47.816 Spondylosis without myelopathy or radiculopathy, lumbar region; G89.4 Chronic pain syndrome; M46.1 Sacroiliitis, not elsewhere classified; M53.3 Sacrococcygeal disorders, not elsewhere classified | CPT/HCPCS: 99212 ==

== ENCOUNTER 2023-04-15 06:14 | Outpatient (REF) | payer MEDICARE, SELFPAY ==
--- NOTE | ~2023-04-15 | FL_ITS ---
EXAMINATION: XR FLUOROSCOPY WITH IMAGES CLINICAL INFORMATION: Vertebrogenic low back pain. COMPARISON: None available. TECHNIQUE: Fluoroscopy Supervised By: Dr. Alirio Mccoy. Fluoroscopy Time: 0.2 minutes. Cumulative Dose: 2.64 mGy. DAP: 0.0306 Gycm2. Images: 2. FINDINGS: Images demonstrate needle placement and contrast injection of the epidural space in the sacrum FL/FL guidance in treatment room IMPRESSION: Fluoroscopic guidance for pain management procedure.
== END 2023-04-15 06:15 | disposition home or self-care (01) ==
LOC: CF 06:14
PROVIDERS: Visit Provider Anesthesiology
DX: M54.51 Vertebrogenic low back pain (principal); M47.816 Spondylosis without myelopathy or radiculopathy, lumbar region; M51.36 Other intervertebral disc degeneration, lumbar region; M46.1 Sacroiliitis, not elsewhere classified; M53.3 Sacrococcygeal disorders, not elsewhere classified; M51.37 Other intervertebral disc degeneration, lumbosacral region; G89.4 Chronic pain syndrome
CPT/HCPCS: 62323

== ENCOUNTER 2023-04-15 08:29 | Outpatient (AMB) | payer MEDICARE, SELFPAY ==
--- NOTE | 2023-04-15 08:32 | MHC.OFFVIS ---
Intake Vital Signs 04/15/23 08:40 04/15/23 09:53 Height 5 ft 4 in 5 ft 4 in Weight 142 lb 142 lb BMI 24.4 24.4 BP 112/86 130/62 Blood Pressure Location Lt brachial Lt brachial Position Sitting Sitting Respiration 16 16 Pulse 86 75 Pulse Source Pulse Oximeter Pulse Oximeter Pulse Oximetry (%) 97 97 Oxygen Delivery Method Room Air Room Air Comment pre-op post-op Intake Visit Reasons: CAUDAL GERRI W/OUT CATH/LOCAL Allergies peppers Adverse Reaction (Severe, Uncoded 03/05/23 10:35) Shortness of Breath PFSH Medical History (Updated 04/14/23 @ 09:59 by Alirio Mccoy MD) Seasonal allergies History of chemotherapy Hx of breast cancer Elevated cholesterol HTN (hypertension) Arthritis, lumbar spine Heart murmur Epilepsy Surgical History (Updated 08/05/22 @ 15:18 by Zakia Manzano) H/O right mastectomy Social History Are you a primary post acute care nurse to a significant other at home: No Do you presently have visiting nurse or other home services: No Comment: aware of trip hazard Patient Tobacco Use Status: Former Tobacco user Quit Date: 1994 Tobacco use type: Cigarette Physical Exam Vital Signs: Last Vital Signs Pulse 75 04/15/23 09:53 Resp 16 04/15/23 09:53 BP 130/62 04/15/23 09:53 Pulse Ox 97 04/15/23 09:53 Oxygen Delivery Method Room Air 04/15/23 09:53 BMI result Body Mass Index 24.4 Assessment & Plan Assessment & Plan (1) Disc degeneration, lumbar: Code(s): M51.36 - Other intervertebral disc degeneration, lumbar region (2) Facet degeneration of lumbar region: Code(s): M47.816 - Spondylosis without myelopathy or radiculopathy, lumbar region (3) Spondylosis of lumbar region without myelopathy or radiculopathy: Code(s): M47.816 - Spondylosis without myelopathy or radiculopathy, lumbar region (4) Chronic pain syndrome: Code(s): G89.4 - Chronic pain syndrome Plan: Caudal GERRI . After obtaining informed consent the patient was taken to the operating room where she was position on operating table prone.? ?Time-out was performed delineating correct site, side, the nature of the procedure, patient's allergy need for antibiotic therapy.? All operating room staff was participating in OR time-out procedure.? Her lower back, bilateral buttocks and intergluteal cleft were thoroughly prepped with ChloraPrep and draped with sterile fenestrated clear drape.? Fluoroscopy C-arm was brought over the operating field and picture of midline sacral bone superimposing on symphysis pubis was obtained on the C-arm screen.? After that the position of the C-arm was turned into the lateral.? The position of sacral hiatus was noted on the screen.? 2.5 cm below the sacral hiatus opening local anesthetic lidocaine 2% 3 cc was injected into the skin with 25 gauge 1/2 inch needle.? After that 10 cm 20 gauge Touhy needle was inserted through the skin and advanced the opening of sacral hiatus on intermittent anterior posterior and lateral views.? When needle entered the sacral canal injection of the contrast performed into the needle demonstrating epidural spread of the contrast.? After After that? 18 cc of normal saline was injected into the catheter, following this? 4 cc of preservative-free lidocaine 1% mixed with Kenalog 40 mg was injected into the catheter.? Upon completion of the injections the needle was removed and sterile dressing with bacitracin ointment was applied.? The patient tolerated procedure fairly well . (5) Sacroiliitis, not elsewhere classified: Code(s): M46.1 - Sacroiliitis, not elsewhere classified (6) Coccydynia: Code(s): M53.3 - Sacrococcygeal disorders, not elsewhere classified (7) Sacroiliac dysfunction: Code(s): M53.3 - Sacrococcygeal disorders, not elsewhere classified (8) Low back pain: Code(s): M54.50 - Low back pain, unspecified (9) Degeneration of lumbosacral intervertebral disc: Code(s): M51.37 - Other intervertebral disc degeneration, lumbosacral region Plan Multiple attempts to alleviate the pain of the patient's were done without significant success. Intradiscal injection resulted in no pain improvement of though she might have aggravation in her pain related to intradiscal injection and it may be indicative for discogenic pain. Intercept procedure alleviated pain in the projection of the lumbar spine however she still complains on pain in the projection of initial bones a and pain in the sacral bone. She asks me to temporize her pain with some injection while we are waiting for her to be approved for neuromodulation and go for psychological evaluation for this purpose. I offered her caudal epidural steroid injection. Without catheter. I will schedule for this procedure as soon as possible. She will be scheduled for psychological evaluation. Orders: Orders FL guidance in treatment room 04/15/23 G89.4 - Chronic pain syndrome, M51.37 - Other intervertebral disc degeneration, lumbosacral region, M54.51 - Vertebrogenic low back pain Coding Level of Care Code Procedure Only Diagnoses Disc degeneration, lumbar M51.36 Facet degeneration of lumbar region M47.816 Spondylosis of lumbar region without myelopathy or radiculopathy M47.816 Chronic pain syndrome G89.4 Sacroiliitis, not elsewhere classified M46.1 Coccydynia M53.3 Sacroiliac dysfunction M53.3 Low back pain M54.50 Degeneration of lumbosacral intervertebral disc M51.37
[2023-04-15 08:40] VITALS: BP 112/86; PULSE 86; RESP 16; O2SAT 97; BMI 24.4
[2023-04-15 09:53] VITALS: BP 130/62; PULSE 75; RESP 16; O2SAT 97; BMI 24.4
== END 2023-04-15 09:31 | disposition home or self-care (01) ==
LOC: HO.PMCPRC 08:29
PROVIDERS: PCP Nurse Practitioner Adult Health; Visit Provider Anesthesiology
DX: M51.36 Other intervertebral disc degeneration, lumbar region (principal); M47.816 Spondylosis without myelopathy or radiculopathy, lumbar region; G89.4 Chronic pain syndrome; M46.1 Sacroiliitis, not elsewhere classified; M53.3 Sacrococcygeal disorders, not elsewhere classified; M54.50 Low back pain, unspecified; M51.37 Other intervertebral disc degeneration, lumbosacral region
CPT/HCPCS: 62323

== ENCOUNTER 2023-05-26 10:31 | Outpatient (AMB) | payer MEDICARE, SELFPAY ==
--- NOTE | 2023-05-26 10:32 | A.OFFVIS_ITS ---
Intake Vital Signs 05/26/23 10:36 Height 5 ft 4 in Weight 142 lb BMI 24.4 BP 148/66 H Blood Pressure Location Lt brachial Position Sitting Respiration 14 Pulse 95 Pulse Source Pulse Oximeter Pulse Oximetry (%) 97 Oxygen Delivery Method Room Air Intake Visit Reasons: CAUDAL GERRI WITH CATHETER/04/15/23/lvm Intake Note: Patient comes in for post-op appointment. Allergies peppers Adverse Reaction (Severe, Uncoded 03/05/23 10:35) Shortness of Breath HPI HPI Comments History of Present Illness Details Marti is back in my office after caudal epidural steroid injection which was performed on her on 04/15/2023. She reports 5 days after the injection she felt absolutely no pain whatsoever. Immediately after injection she demonstrated very impressive mobility and activities of daily living. After that the pain started to come back however very slightly. She still reports pain 2/10 today 40 days after the procedure. However her insurance company does not seem to consider this procedure medically necessary. I at this time informed about the situation to the patient. The patient reported to me that maybe spinal cord stimulator would be a good answer to her pain control. We continued very detailed conversation about spinal cord stimulator. I explained to her difficulties of performance of spinal cord stimulation in the caudal canal. Nevertheless I had not mind to try if she will be approved by psychological evaluation. She will be scheduled for psychological evaluation she was informed about co-payment for the procedure of psychological evaluation. Intraseptal procedure gave significant pain relief to the patient with the lower back pain. However pain in the projection of the sacral bone and inability to seat following period of time linger behind. She denies any pain in the back in the projection of the lumbar spine. However now on the background of the pain improvement in the lower back she feels more pain in the projection of the bilateral ischial bones. She reports that the prolong sitting causes significant pain aggravation and she feels pain in the projection of bilateral initial bones which radiate into the sacral bone. She reports that heat alleviates pain in the area of the ischial bone and sacral bone. She requests me to perform some injections to alleviate this pain. We discussed the issue to treat her pain with neuromodulation now. Prior:. Previously multiple attempts were made to diagnose and alleviate her pain. We performed intradiscal injection L5-S1 on her with the minimal pain reduction, we performed sacroiliac joint injection bilateral on which she reported no pain improvement. Last time she asked me whether her condition could be coccydynia. I performed ganglion impar injection?which resulted in no pain improvement. Vertebrogenic pain could be considered with this patient since she reports pain exacerbation with flexing forward and prolong sitting. On the MRI of this patient [facility] Medical History (Updated 04/14/23 @ 09:59 by Alirio Mccoy MD) Seasonal allergies History of chemotherapy Hx of breast cancer Elevated cholesterol HTN (hypertension) Arthritis, lumbar spine Heart murmur Epilepsy Surgical History (Updated 08/05/22 @ 15:18 by Zakia Manzano) H/O right mastectomy Social History Are you a primary critical care clinical nurse specialist to a significant other at home: No Do you presently have visiting nurse or other home services: No Comment: aware of trip hazard Patient Tobacco Use Status: Former Tobacco user Quit Date: 1994 Tobacco use type: Cigarette Review of Systems Const All systems reviewed & are unremarkable except as noted in HPI and below ENT Reports Normal hearing present Neuro Reports Normal hearing present, Denies Abnormal speech present and Denies Sensory deficit (Neuro) Physical Exam Vital Signs: Last Vital Signs Pulse 95 05/26/23 10:36 Resp 14 05/26/23 10:36 BP 148/66 H 05/26/23 10:36 Pulse Ox 97 05/26/23 10:36 Oxygen Delivery Method Room Air 05/26/23 10:36 BMI result Body Mass Index 24.4 Const General: no acute distress Nutritional Appearance: average body habitus and well nourished Orientation/consciousness: patient oriented x3 Eyes General: appearance normal, both eyes and all related structures Pupils: Equal, round and reactive pupils present EOM: EOMs intact bilaterally Neck Neck: Yes full ROM Chest Chest palpation & inspection: normal inspection of the chest Resp Effort & Inspection: normal respiratory effort, able to speak in complete sentences, normal respiratory pattern, no audible wheezes and no cough Cardio Jugular venous distension: no JVD GI Inspection: Yes normal to inspection Back/Spine/Pelvis Other: She is able to stand on bilateral tiptoes and bilateral heels without difficulty. She is able to lift up large toes on bilateral feet without elevation of the rest of the toes. She is able to flex herself forward without difficulty but she is unable to flex herself backwards because of pain. Loading test is positive on the left. Tenderness of palpation in the center of the sacral bone. No tenderness of palpation in the projection of lumbar spine in paraspinal or spinal regions. Flexing spine sideways is painful more on the left and less on the right. Significant tenderness on palpation in the projection of bilateral ischial bones as well as tenderness on palpation in the projection of the sacral bone. Neuro General: patient oriented x3 and gait normal Cranial nerves: Yes CN's II-XII intact bilaterally, Yes Equal, round and reactiv e pupils present, Yes Normal hearing present and Yes Ability to bilaterally elevate shoulders present Speech: No Abnormal speech present Gait exam (Neuro): Normal gait present Motor exam (neuro): 5/5 motor strength present throughout Sensory Exam: No Sensory deficit (Neuro) Extrem General: No pedal edema Psych Speech and movement: Normal speech and movement present Affect: normal affect Attitude: cooperative Thought process: Normal thought process present Thought content: Normal thought content present Insight: Good insight present (Psych) Judgement: Good judgement present (Psych) Assessment & Plan Assessment & Plan (1) Disc degeneration, lumbar: Code(s): M51.36 - Other intervertebral disc degeneration, lumbar region (2) Facet degeneration of lumbar region: Code(s): M47.816 - Spondylosis without myelopathy or radiculopathy, lumbar region (3) Spondylosis of lumbar region without myelopathy or radiculopathy: Code(s): M47.816 - Spondylosis without myelopathy or radiculopathy, lumbar region (4) Chronic pain syndrome: Code(s): G89.4 - Chronic pain syndrome (5) Sacroiliitis, not elsewhere classified: Code(s): M46.1 - Sacroiliitis, not elsewhere classified (6) Coccydynia: Code(s): M53.3 - Sacrococcygeal disorders, not elsewhere classified (7) Sacroiliac dysfunction: Code(s): M53.3 - Sacrococcygeal disorders, not elsewhere classified (8) Low back pain: Code(s): M54.50 - Low back pain, unspecified (9) Degeneration of lumbosacral intervertebral disc: Code(s): M51.37 - Other intervertebral disc degeneration, lumbosacral region Jami Cruz is 67 years old who is suffering from multiple pain generators. Her lower back pain was successfully addressed with intrasept procedure. Unfortunately pain in the coccyx and pain in the projection of the sacral bone as well as tenderness on palpation in projection of bilateral ischial bones of unknown origin lingers behind. Caudal epidural steroid injection was given to the patient as temporary fixation of her pain. She reported profound and significant pain improvement on caudal epidural steroid injection. It has been 40 days since the procedure which was performed the 04/15/2023. Her insurance company denied payment for this procedure because it is not indicated according to the this insurance company opinion. The only indication I have is that the patient had more than 75% pain improvement in her coccygeal and sacral area for 40 days after the procedure. Nevertheless this procedure was given to the patient as it temporization of her pain and improvement of her activities of daily living. She is interested in neuromodulation. I will schedule her for psychological evaluation. After that if psychological evaluation approve her for the SCS and her insurance company will not deny procedure for us I will go for the trial of [employer] [facility] SCS. Patient Instructions: I here by testify that I spent 45 minutes in conversation with the patient today as well as planning her care and organizing her notes. Coding Level of Care Code Est Pt Level 5 (21448) Diagnoses Disc degeneration, lumbar M51.36 Facet degeneration of lumbar region M47.816 Spondylosis of lumbar region without myelopathy or radiculopathy M47.816 Chronic pain syndrome G89.4 Sacroiliitis, not elsewhere classified M46.1 Coccydynia M53.3 Sacroiliac dysfunction M53.3 Low back pain M54.50 Degeneration of lumbosacral intervertebral disc M51.37
[2023-05-26 10:36] VITALS: BP 148/66; PULSE 95; RESP 14; O2SAT 97; BMI 24.4
== END 2023-05-26 11:12 | disposition home or self-care (01) ==
PROVIDERS: PCP Nurse Practitioner Adult Health; Visit Provider Anesthesiology
DX: M51.36 Other intervertebral disc degeneration, lumbar region (principal); M47.816 Spondylosis without myelopathy or radiculopathy, lumbar region; G89.4 Chronic pain syndrome; M46.1 Sacroiliitis, not elsewhere classified; M53.3 Sacrococcygeal disorders, not elsewhere classified; M54.50 Low back pain, unspecified; M51.37 Other intervertebral disc degeneration, lumbosacral region
CPT/HCPCS: 99215

== ENCOUNTER → 2023-05-26 10:31 | Outpatient (BNVA) | payer MEDICARE, SELFPAY | PROVIDERS: PCP Nurse Practitioner Adult Health; Visit Provider Anesthesiology | DX: M51.36 Other intervertebral disc degeneration, lumbar region (principal); M47.816 Spondylosis without myelopathy or radiculopathy, lumbar region; M46.1 Sacroiliitis, not elsewhere classified; M53.3 Sacrococcygeal disorders, not elsewhere classified; M54.50 Low back pain, unspecified; M51.37 Other intervertebral disc degeneration, lumbosacral region; G89.4 Chronic pain syndrome | CPT/HCPCS: 99212 ==

== ENCOUNTER 2023-07-31 09:00 | Outpatient (AMB) | payer MEDICARE, SELFPAY ==
--- NOTE | 2023-07-31 09:02 | A.OFFVIS_ITS ---
Intake Vital Signs 07/31/23 09:07 Height 5 ft 4 in Weight 140 lb BMI 24.0 BP 150/72 H Blood Pressure Location Lt brachial Position Sitting Respiration 14 Pulse 83 Pulse Source Pulse Oximeter Pulse Oximetry (%) 97 Oxygen Delivery Method Room Air Intake Visit Reasons: Medication Discussion (Increased Pain) Intake Note: Patient comes in to discuss medication. Reports pain 3/10. Allergies peppers Adverse Reaction (Severe, Uncoded 03/05/23 10:35) Shortness of Breath HPI HPI Comments History of Present Illness Details Marti is back in my office after caudal epidural steroid injection which was performed on her on 04/15/2023. She reported 5 days of complete absence of pain after the procedure. She reported for the past 4 months her pain was either non-existent or 1/10 at the best. She reports excellent mobility, excellent activities of daily living perfect social interactions while the results of the procedure were lasting. Unfortunately now her pain is starting to come back. Yesterday she reported pain 5/10. Today she reported pain slightly better 4/10 because she increase the dose of the gabapentin to 600 mg t.i.d.. She wants me to endorse this change with the gabapentin on a new prescription. I will cancel prescription and I will prescribe gabapentin 600 mg t.i.d.. Patient is requesting me to repeat her caudal epidural steroid injection again. I will schedule her without sedation. We discussed again spinal cord stimulator. All questions were answered. Patient is still not very eager to go for SCS however she appears to be interested. Intraseptal procedure gave significant pain relief to the patient with the lower back pain. However pain in the projection of the sacral bone and inability to seat following period of time linger behind. She denies any pain in the back in the projection of the lumbar spine. However now on the background of the pain improvement in the lower back she feels more pain in the projection of the bilateral ischial bones. She reports that the prolong sitting causes significant pain aggravation and she feels pain in the projection of bilateral initial bones which radiate into the sacral bone. She reports that heat alleviates pain in the area of the ischial bone and sacral bone. She requests me to perform some injections to alleviate this pain. We discussed the issue to treat her pain with neuromodulation now. Prior:. Previously multiple attempts were made to diagnose and alleviate her pain. We performed intradiscal injection L5-S1 on her with the minimal pain reduction, we performed sacroiliac joint injection bilateral on which she reported no pain improvement. Last time she asked me whether her condition could be coccydynia. I performed ganglion impar injection?which resulted in no pain improvement. Vertebrogenic pain could be considered with this patient since she reports pain exacerbation with flexing forward and prolong sitting. On the MRI of this patient [facility] Medical History (Updated 07/31/23 @ 09:31 by Alirio Mccoy MD) Seasonal allergies History of chemotherapy Hx of breast cancer Elevated cholesterol HTN (hypertension) Arthritis, lumbar spine Heart murmur Epilepsy Surgical History (Updated 08/05/22 @ 15:18 by Zakia Manzano) H/O right mastectomy Social History Are you a primary home visit field care manager to a significant other at home: No Do you presently have visiting nurse or other home services: No Comment: aware of trip hazard Patient Tobacco Use Status: Former Tobacco user Quit Date: 1994 Tobacco use type: Cigarette Review of Systems Const All systems reviewed & are unremarkable except as noted in HPI and below ENT Reports Normal hearing present Neuro Reports Normal hearing present, Denies Abnormal speech present and Denies Sensory deficit (Neuro) Physical Exam Vital Signs: Last Vital Signs Pulse 83 07/31/23 09:07 Resp 14 07/31/23 09:07 BP 150/72 H 07/31/23 09:07 Pulse Ox 97 07/31/23 09:07 Oxygen Delivery Method Room Air 07/31/23 09:07 BMI result Body Mass Index 24.0 Const General: no acute distress Nutritional Appearance: average body habitus and well nourished Orientation/consciousness: patient oriented x3 Eyes General: appearance normal, both eyes and all related structures Pupils: Equal, round and reactive pupils present EOM: EOMs intact bilaterally Neck Neck: Yes full ROM Chest Chest palpation & inspection: normal inspection of the chest Resp Effort & Inspection: normal respiratory effort, able to speak in complete sentences, normal respiratory pattern, no audible wheezes and no cough Cardio Jugular venous distension: no JVD GI Inspection: Yes normal to inspection Back/Spine/Pelvis Other: She is able to stand on bilateral tiptoes and bilateral heels without difficulty. She is able to lift up large toes on bilateral feet without elevation of the rest of the toes. She is able to flex herself forward without difficulty but she is unable to flex herself backwards because of pain. Loading test is positive on the left. Tenderness of palpation in the center of the sacral bone. No tenderness of palpation in the projection of lumbar spine in paraspinal or spinal regions. Flexing spine sideways is painful more on the left and less on the right. Significant tenderness on palpation in the projection of bilateral ischial bones as well as tenderness on palpation in the projection of the sacral bone. Neuro General: patient oriented x3 and gait normal Cranial nerves: Yes CN's II-XII intact bilaterally, Yes Equal, round and reacti ve pupils present, Yes Normal hearing present and Yes Ability to bilaterally elevate shoulders present Speech: No Abnormal speech present Gait exam (Neuro): Normal gait present Motor exam (neuro): 5/5 motor strength present throughout Sensory Exam: No Sensory deficit (Neuro) Extrem General: No pedal edema Psych Speech and movement: Normal speech and movement present Affect: normal affect Attitude: cooperative Thought process: Normal thought process present Thought content: Normal thought content present Insight: Good insight present (Psych) Judgement: Good judgement present (Psych) Assessment & Plan Assessment & Plan (1) Disc degeneration, lumbar: Code(s): M51.36 - Other intervertebral disc degeneration, lumbar region (2) Facet degeneration of lumbar region: Code(s): M47.816 - Spondylosis without myelopathy or radiculopathy, lumbar region (3) Spondylosis of lumbar region without myelopathy or radiculopathy: Code(s): M47.816 - Spondylosis without myelopathy or radiculopathy, lumbar region (4) Chronic pain syndrome: Code(s): G89.4 - Chronic pain syndrome (5) Sacroiliitis, not elsewhere classified: Code(s): M46.1 - Sacroiliitis, not elsewhere classified (6) Coccydynia: Code(s): M53.3 - Sacrococcygeal disorders, not elsewhere classified (7) Sacroiliac dysfunction: Code(s): M53.3 - Sacrococcygeal disorders, not elsewhere classified (8) Low back pain: Code(s): M54.50 - Low back pain, unspecified (9) Degeneration of lumbosacral intervertebral disc: Code(s): M51.37 - Other intervertebral disc degeneration, lumbosacral region (10) Radiculopathy, sacral: Code(s): M54.18 - Radiculopathy, sacral and sacrococcygeal region Jami Cruz is 67 years old who is suffering from multiple pain generators. Her lower back pain was successfully addressed with intrasept procedure. Unfortunately pain in the coccyx and pain in the projection of the sacral bone as well as tenderness on palpation in projection of bilateral ischial bones of unknown origin lingers behind. Caudal epidural steroid injection was given on 04/15/2023 to the patient and resulted in excellent pain improvement for the 4 months. I will attempt to approve her with her insurance company again for repeat of caudal epidural steroid injection. She wants to do this procedure without sedation. She is interested in neuromodulation. She asked multiple questions about SCS today. SCS position in the sacral canal would be a good idea for this patient is stimulation. After that if psychological evaluation approve her for the SCS and her insurance company will not deny procedure for us I will go for the trial of [employer] SCS. I also will - increase the dose of her gabapentin to 600 mg t.i.d.. Medications: New gabapentin 600 mg PO TID 90 tabs 8RF 30 days Discontinued gabapentin Discontinued Reason: Doctor's Order 600 mg PO BID 60 tabs 8RF 30 days Patient Instructions: I here by testify that I spent 35 minutes in conversation with this patient as well as planning her care evaluating her prior records and organizing this note. Coding Level of Care Code Est Pt Level 4 (62969) Diagnoses Disc degeneration, lumbar M51.36 Facet degeneration of lumbar region M47.816 Spondylosis of lumbar region without myelopathy or radiculopathy M47.816 Chronic pain syndrome G89.4 Sacroiliitis, not elsewhere classified M46.1 Coccydynia M53.3 Sacroiliac dysfunction M53.3 Low back pain M54.50 Degeneration of lumbosacral intervertebral disc M51.37 Radiculopathy, sacral M54.18
[2023-07-31 09:07] VITALS: BP 150/72; PULSE 83; RESP 14; O2SAT 97; BMI 24.0
== END 2023-07-31 10:04 | disposition home or self-care (01) ==
PROVIDERS: PCP Nurse Practitioner Adult Health; Visit Provider Anesthesiology
DX: M51.36 Other intervertebral disc degeneration, lumbar region (principal); M47.816 Spondylosis without myelopathy or radiculopathy, lumbar region; G89.4 Chronic pain syndrome; M46.1 Sacroiliitis, not elsewhere classified; M53.3 Sacrococcygeal disorders, not elsewhere classified; M54.50 Low back pain, unspecified; M51.37 Other intervertebral disc degeneration, lumbosacral region; M54.18 Radiculopathy, sacral and sacrococcygeal region
CPT/HCPCS: 99214

== ENCOUNTER → 2023-07-31 09:00 | Outpatient (BNVA) | payer MEDICARE, SELFPAY | PROVIDERS: PCP Nurse Practitioner Adult Health; Visit Provider Anesthesiology | DX: M51.36 Other intervertebral disc degeneration, lumbar region (principal); M47.816 Spondylosis without myelopathy or radiculopathy, lumbar region; M46.1 Sacroiliitis, not elsewhere classified; M53.3 Sacrococcygeal disorders, not elsewhere classified; M54.50 Low back pain, unspecified; M51.37 Other intervertebral disc degeneration, lumbosacral region; M54.18 Radiculopathy, sacral and sacrococcygeal region; G89.4 Chronic pain syndrome | CPT/HCPCS: 99212 ==

== ENCOUNTER 2023-08-26 06:02 | Outpatient (REF) | payer MEDICARE, SELFPAY ==
--- NOTE | ~2023-08-26 | FL_ITS ---
EXAMINATION: XR FLUOROSCOPY WITH IMAGES CLINICAL INFORMATION: Chronic pain syndrome. COMPARISON: Fluoroscopy dated 04/15/2023. TECHNIQUE: Fluoroscopy Supervised By: Dr. Alirio Mccoy. Fluoroscopy Time: 0.1 minutes. Cumulative Dose: 2.09 mGy. DAP: 0.572 Gycm2. Images: 1. FINDINGS: The submitted image shows an injection needle and injected contrast within the epidural space of the sacrum. FL/FL guidance in treatment room IMPRESSION: Intraoperative fluoroscopic guidance is provided during sacral pain management procedure. Please see the patient's Operative Report for full procedural details.
== END 2023-08-26 06:03 | disposition home or self-care (01) ==
LOC: CF 06:02
PROVIDERS: Visit Provider Anesthesiology
DX: G89.4 Chronic pain syndrome (principal); M54.18 Radiculopathy, sacral and sacrococcygeal region; M51.37 Other intervertebral disc degeneration, lumbosacral region; M54.50 Low back pain, unspecified
CPT/HCPCS: 62323; J3301; Q9967

== ENCOUNTER 2023-08-26 08:38 | Outpatient (AMB) | payer MEDICARE, SELFPAY ==
[2023-08-26 08:40] VITALS: BP 124/70; PULSE 96; RESP 18; O2SAT 96; BMI 24.0
--- NOTE | 2023-08-26 08:40 | MHC.OFFVIS ---
Intake Vital Signs 08/26/23 08:40 08/26/23 09:41 Height 5 ft 4 in Weight 140 lb BMI 24.0 BP 124/70 140/78 H Blood Pressure Location Lt brachial Lt brachial Position Sitting Sitting Respiration 18 16 Pulse 96 88 Pulse Source Pulse Oximeter Pulse Oximeter Pulse Oximetry (%) 96 97 Oxygen Delivery Method Room Air Room Air Comment Pre-Op Post-Op Intake Visit Reasons: CAUDAL GERRI WITH CATHETER Allergies peppers Adverse Reaction (Severe, Uncoded 03/05/23 10:35) Shortness of Breath PFSH Medical History (Updated 07/31/23 @ 09:31 by Alirio Mccoy MD) Seasonal allergies History of chemotherapy Hx of breast cancer Elevated cholesterol HTN (hypertension) Arthritis, lumbar spine Heart murmur Epilepsy Surgical History (Updated 08/05/22 @ 15:18 by Zakia Manzano) H/O right mastectomy Social History Are you a primary career development engineer to a significant other at home: No Do you presently have visiting nurse or other home services: No Comment: aware of trip hazard Patient Tobacco Use Status: Former Tobacco user Quit Date: 1994 Tobacco use type: Cigarette Physical Exam Vital Signs: Last Vital Signs Pulse 88 08/26/23 09:41 Resp 16 08/26/23 09:41 BP 140/78 H 08/26/23 09:41 Pulse Ox 97 08/26/23 09:41 Oxygen Delivery Method Room Air 08/26/23 09:41 BMI result Body Mass Index 24.0 Assessment & Plan Assessment & Plan (1) Radiculopathy, sacral: Code(s): M54.18 - Radiculopathy, sacral and sacrococcygeal region (2) Degeneration of lumbosacral intervertebral disc: Code(s): M51.37 - Other intervertebral disc degeneration, lumbosacral region (3) Low back pain: Code(s): M54.50 - Low back pain, unspecified Plan Caudal GERRI with catheter. Informed consent was explained to the patient. All questions were explained and answered. The patient was taken inside of the operating room where she was positioned prone on the operating table. Time-out was performed delineating patient's name and date of , correct site, side, the nature of the procedure, patient's allergy, All operating room staff and the patient were participating in OR time-out procedure. the patient's lower back buttock and intragluteal crease were prepped with ChloraPrep and draped with sterile utility draped. C-arm was brought over the operating field and sq picture of sacral bone was delineated on the screen. the target of needle insertion was chosen as a caudal hiatus. The projection of the caudal hiatus to the skin was chosen as point of local anesthetic injection. 2% lidocaine 3 mls were injected into the skin. After that 18 G Tuohy needle was inserted through the skin and under intermittent AP and lateral guide was advanced into the sacral hiatus and into the caudal canal . injection of the contrast demonstrated epidural spread of the contrast. After that 22 g epidual catheter was advanced into the epidural space until the resistance was met and the injection of the contrast was performed again. The injection of the contrast was delineating epidural space at the intervale. After that injection of 25mls of normal saline was performed into the catheter. Following this injection of the lidocaine 1% PF mixed with kenalog 40 mg was performed with the catheter. The needle and the catheter were removed en mass, the tip of the catheter was intact. Sterile bandaid was applied.The patient tolerated the procedure very well. Orders: Orders FL guidance in treatment room Today Mary Patrick APRN, VEHICLE INSPECTOR G89.4 - Chronic pain syndrome Medications: New gabapentin 600 mg PO TID 12 tabs 0RF 4 days Alirio Mccoy MD Coding Level of Care Code Procedure Only Diagnoses Radiculopathy, sacral M54.18 Degeneration of lumbosacral intervertebral disc M51.37 Low back pain M54.50
[2023-08-26 09:41] VITALS: BP 140/78; PULSE 88; RESP 16; O2SAT 97
== END 2023-08-26 09:35 | disposition home or self-care (01) ==
LOC: HO.PMCPRC 08:39
PROVIDERS: PCP Nurse Practitioner Adult Health; Visit Provider Anesthesiology
DX: M54.18 Radiculopathy, sacral and sacrococcygeal region (principal); M51.37 Other intervertebral disc degeneration, lumbosacral region; M54.50 Low back pain, unspecified
CPT/HCPCS: 62323

== ENCOUNTER 2023-09-22 10:42 | Outpatient (AMB) | payer MEDICARE, SELFPAY ==
--- NOTE | 2023-09-22 10:46 | A.OFFVIS_ITS ---
Vital Signs 09/22/23 10:56 Height 5 ft 4 in Weight 140 lb BMI 24.0 BP 138/74 Blood Pressure Location Lt brachial Position Sitting Respiration 16 Pulse 91 Pulse Source Pulse Oximeter Pulse Oximetry (%) 95 Oxygen Delivery Method Room Air Intake Visit Reasons: CAUDAL GERRI WITH CATHETER Intake Note: Patient comes in for post-op appointment. Reports pain 6/10. Allergies peppers Adverse Reaction (Severe, Uncoded 03/05/23 10:35) Shortness of Breath HPI Comments Details: Marti is back in my office after caudal epidural steroid injection on 08/26/2023, this time she reports no pain relief whatsoever. Previously she had caudal epidural steroid injection on 04/15/2023. She had reported 5 days of complete absence of pain after the procedure. She reported for the past 4 months her pain was either non-existent or 1/10 at the best. However the pain returned and repeat the injection was not successful. We discussed again spinal cord stimulator as well as pain pump. The conversation was very detailed and I was able to explain to her the minute details of neuromodulation. She went for 2nd opinion about her pain to [facility] pain management. I also suggested for her to go to [facility]. One of them is [facility] I made referral for her see as below. Intraseptal procedure gave significant pain relief to the patient with the lower back pain. However pain in the projection of the sacral bone and inability to seat following period of time linger behind. She denies any pain in the back in the projection of the lumbar spine. However now on the background of the pain improvement in the lower back she feels more pain in the projection of the bilateral ischial bones. She reports that the prolong sitting causes significant pain aggravation and she feels pain in the projection of bilateral initial bones which radiate into the sacral bone. She reports that heat alleviates pain in the area of the ischial bone and sacral bone. She requests me to perform some injections to alleviate this pain. Prior:. Previously multiple attempts were made to diagnose and alleviate her pain. We performed intradiscal injection L5-S1 on her with the minimal pain reduction, we performed sacroiliac joint injection bilateral on which she reported no pain improvement. Last time she asked me whether her condition could be coccydynia. I performed ganglion impar injection?which resulted in no pain improvement. Vertebrogenic pain could be considered with this patient since she reports pain exacerbation with flexing forward and prolong sitting. On the MRI of this patient [facility] Medical History (Updated 07/31/23 @ 09:31 by Alirio Mccoy MD) Seasonal allergies History of chemotherapy Hx of breast cancer Elevated cholesterol HTN (hypertension) Arthritis, lumbar spine Heart murmur Epilepsy Surgical History (Updated 08/05/22 @ 15:18 by Zakia Manzano) H/O right mastectomy Social History Are you a primary rn home care to a significant other at home: No Do you presently have visiting nurse or other home services: No Comment: aware of trip hazard Patient Tobacco Use Status: Former Tobacco user Quit Date: 1994 Tobacco use type: Cigarette Review of Systems Const All systems reviewed & are unremarkable except as noted in HPI and below ENT Reports Normal hearing present Neuro Reports Normal hearing present, Denies Abnormal speech present and Denies Sensory deficit (Neuro) Physical Exam Vital Signs: Last Vital Signs Pulse 91 09/22/23 10:56 Resp 16 09/22/23 10:56 BP 138/74 09/22/23 10:56 Pulse Ox 95 09/22/23 10:56 Oxygen Delivery Method Room Air 09/22/23 10:56 BMI result Body Mass Index 24.0 Const General: no acute distress Nutritional Appearance: average body habitus and well nourished Orientation/consciousness: patient oriented x3 Eyes General: appearance normal, both eyes and all related structures Pupils: Equal, round and reactive pupils present EOM: EOMs intact bilaterally Neck Neck: Yes full ROM Chest Chest palpation & inspection: normal inspection of the chest Resp Effort & Inspection: normal respiratory effort, able to speak in complete sentences, normal respiratory pattern, no audible wheezes and no cough Cardio Jugular venous distension: no JVD GI Inspection: Yes normal to inspection Back/Spine/Pelvis Other: She is able to stand on bilateral tiptoes and bilateral heels without difficulty. She is able to lift up large toes on bilateral feet without elevation of the rest of the toes. She is able to flex herself forward without difficulty but she is unable to flex herself backwards because of pain. Loading test is positive on the left. Tenderness of palpation in the center of the sacral bone. No tenderness of palpation in the projection of lumbar spine in paraspinal or spinal regions. Flexing spine sideways is painful more on the left and less on the right. Significant tenderness on palpation in the projection of bilateral ischial bones as well as tenderness on palpation in the projection of the sacral bone. Neuro General: patient oriented x3 and gait normal Cranial nerves: Yes CN's II-XII intact bilaterally, Yes Equal, round and reactive pupils present, Yes Normal hearing present and Yes Ability to bilater ally elevate shoulders present Speech: No Abnormal speech present Gait exam (Neuro): Normal gait present Motor exam (neuro): 5/5 motor strength present throughout Sensory Exam: No Sensory deficit (Neuro) Extrem General: No pedal edema Psych Speech and movement: Normal speech and movement present Affect: normal affect Attitude: cooperative Thought process: Normal thought process present Thought content: Normal thought content present Insight: Good insight present (Psych) Judgement: Good judgement present (Psych) Assessment & Plan Assessment & Plan (1) Facet degeneration of lumbar region: Code(s): M47.816 - Spondylosis without myelopathy or radiculopathy, lumbar region Category: Medical (2) Spondylosis of lumbar region without myelopathy or radiculopathy: Code(s): M47.816 - Spondylosis without myelopathy or radiculopathy, lumbar region Category: Medical (3) Chronic pain syndrome: Code(s): G89.4 - Chronic pain syndrome Category: Medical (4) Coccydynia: Code(s): M53.3 - Sacrococcygeal disorders, not elsewhere classified Category: Medical (5) Sacroiliac dysfunction: Code(s): M53.3 - Sacrococcygeal disorders, not elsewhere classified Category: Medical (6) Sacroiliitis, not elsewhere classified: Code(s): M46.1 - Sacroiliitis, not elsewhere classified Category: Medical (7) Vertebrogenic low back pain: Code(s): M54.51 - Vertebrogenic low back pain Category: Medical (8) Low back pain: Code(s): M54.50 - Low back pain, unspecified Category: Medical (9) Degeneration of lumbosacral intervertebral disc: Code(s): M51.37 - Other intervertebral disc degeneration, lumbosacral region Category: Medical (10) Radiculopathy, sacral: Code(s): M54.18 - Radiculopathy, sacral and sacrococcygeal region Category: Medical (11) Disc degeneration, lumbar: Code(s): M51.36 - Other intervertebral disc degeneration, lumbar region Category: Medical Plan Nancy is 67 years old who is suffering from multiple pain generators. Her lower back pain was successfully addressed with intrasept procedure. Unfortunately pain in the coccyx and pain in the projection of the sacral bone as well as tenderness on palpation in projection of bilateral ischial bones of unknown origin lingers behind. Caudal epidural steroid injection on 04/15/2023 to the patient and resulted in excellent pain improvement for the 4 months. However next injection on 08/26/2023 did not get any pain improvement. She went to [facility] pain management and sought a 2nd opinion. I also suggested that she may consider to go for [facility] appointment such as [facility] see as below. She will continue gabapentin 600 mg t.i.d.. Neuromodulation including spinal cord stimulation and intrathecal pain pump were discussed today with the patient. Patient expressed understanding but decided to think about it the models of [employer] were demonstrated to the patient. Orders: Referrals Pain Management Referral G89.4 - Chronic pain syndrome, M46.1 - Sacroiliitis, not elsewhere classified, M47.816 - Spondylosis without myelopathy or radiculopathy, lumbar region, M51.37 - Other intervertebral disc degeneration, lumbosacral region, M53.3 - Sacrococcygeal disorders, not elsewhere classified, M54.18 - Radiculopathy, sacral and sacrococcygeal region, M54.50 - Low back pain, unspecified, M54.51 - Vertebrogenic low back pain Patient Instructions: I here by testify that I spent 32 minutes in conversation with this patient as well as planning her care and organizing this note. Coding Level of Care Code Est Pt Level 4 (64339) Diagnoses Facet degeneration of lumbar region M47.816 Spondylosis of lumbar region without myelopathy or radiculopathy M47.816 Chronic pain syndrome G89.4 Coccydynia M53.3 Sacroiliac dysfunction M53.3 Sacroiliitis, not elsewhere classified M46.1 Vertebrogenic low back pain M54.51 Low back pain M54.50 Degeneration of lumbosacral intervertebral disc M51.37 Radiculopathy, sacral M54.18 Disc degeneration, lumbar M51.36
[2023-09-22 10:56] VITALS: BP 138/74; PULSE 91; RESP 16; O2SAT 95; BMI 24.0
== END 2023-09-22 11:25 | disposition home or self-care (01) ==
PROVIDERS: PCP Nurse Practitioner Adult Health; Visit Provider Anesthesiology
DX: M47.816 Spondylosis without myelopathy or radiculopathy, lumbar region (principal); G89.4 Chronic pain syndrome; M53.3 Sacrococcygeal disorders, not elsewhere classified; M46.1 Sacroiliitis, not elsewhere classified; M54.51 Vertebrogenic low back pain; M54.50 Low back pain, unspecified; M51.37 Other intervertebral disc degeneration, lumbosacral region; M54.18 Radiculopathy, sacral and sacrococcygeal region; M51.36 Other intervertebral disc degeneration, lumbar region
CPT/HCPCS: 99214

== ENCOUNTER → 2023-09-22 10:42 | Outpatient (BNVA) | payer MEDICARE, SELFPAY | PROVIDERS: PCP Nurse Practitioner Adult Health; Visit Provider Anesthesiology | DX: M47.816 Spondylosis without myelopathy or radiculopathy, lumbar region (principal); M53.3 Sacrococcygeal disorders, not elsewhere classified; M46.1 Sacroiliitis, not elsewhere classified; M54.51 Vertebrogenic low back pain; M54.50 Low back pain, unspecified; M51.37 Other intervertebral disc degeneration, lumbosacral region; M54.18 Radiculopathy, sacral and sacrococcygeal region; M51.36 Other intervertebral disc degeneration, lumbar region; G89.4 Chronic pain syndrome | CPT/HCPCS: 99212 ==